=== PATIENT | male | born 1950 | race Caucasian/White ===

== ENCOUNTER 2017-12-18 19:21 | Inpatient (IN) ==
[~2017-12-18 19:21] MED LIST: Acetaminophen 325 MG TABLET PO PRN
[2017-12-18] MEDS ORDERED: Ondansetron 4 MG/2 ML VIAL IVP ONE (19:27)
[2017-12-18 19:42] LABS: Basophils % 0.3 %; Eosinophils % 0.1 %; Hematocrit 35.4 % (37.5-50.1); Hemoglobin 11.9 g/dL (12.9-16.9); Lymphocytes # 1.4 K/mcL (0.6-4.6); Lymphocytes % 13.3 %; Mean Corpuscular HGB Conc 33.6 g/dL (31.6-35.5); Mean Corpuscular Hemoglobin 30.2 pg (28.0-33.3); Mean Corpuscular Volume 89.8 fL (83.0-100.0); Mean Platelet Volume 10.6 fL (9.4-12.4); Monocytes # 0.9 K/mcL (0.0-1.3); Monocytes % 8.3 %; Neutrophils # 8.1 K/mcL (1.6-8.9); Platelet Count 130 K/mcL (140-400); Red Blood Count 3.94 M/mcL (4.19-5.50); Red Cell Distribution Width 14.1 % (11.5-14.5)
--- NOTE | 2017-12-18 19:53 | Emergency Department Note ---
Disposition Clinical Impression: Pyelonephritis, ANJELICA (acute kidney injury), Hyponatremia Nausea and vomiting Qualifiers: Vomiting type: unspecified Vomiting Intractability: non-intractable Qualified Code(s): R11.2 - Nausea with vomiting, unspecified Disposition: Admitted As Inpatient Condition: Fair Time of Disposition: 21:31 General Adult HPI - General Stated complaint: Abdominal Pain Time Seen by Provider: 12/18/17 19:23 Source: patient Mode of arrival: EMS Limitations: no limitations Nursing Notes Reviewed: Yes Vital Signs Reviewed: Yes - History of Present Illness HPI Narrative: Patient is a 67-year-old male with a past medical history of diabetes, HLD, HTN , and chronic indwelling Wiley catheter currently lives with his mother presents to the emergency department for the evaluation of bilateral flank pain , epigastric abdominal pain associated with nausea and vomiting over the past 3 days. Family present in the room states that the patient has an indwelling Wiley catheter and they have noticed odorous dark-colored urine for the past 2 weeks and they have had difficulty getting him into his primary care provider due to no appointments available. States that he just recently had the Wiley catheter changed. - Related Data Home Medications Medication Instructions Recorded Confirmed Amlodipine Besylate 10 mg PO DAILY 01/04/16 01/05/16 Atorvastatin [Lipitor] 40 mg PO HS 01/04/16 01/05/16 Metoprolol [Lopressor] 50 mg PO DAILY 01/04/16 01/05/16 Naproxen Sodium [Naproxen Sodium 500 mg PO BID PRN 01/04/16 01/05/16 ER] Tizanidine HCl 4 mg PO Q8H PRN 01/04/16 01/05/16 Torsemide [Demadex] 20 mg PO DAILY 01/04/16 01/05/16 Ergocalciferol (VITAMIN D2) 50,000 unit PO QWEEK 01/05/16 01/05/16 [Vitamin D2 (50,000 UNIT)] HYDROcodone/Acet 5/325 mg [[place] 1 tab PO Q6H PRN 01/05/16 01/05/16 5-325 mg] Ondansetron HCl [Zofran] 8 mg PO Q12H PRN 01/05/16 01/05/16 Previous Rx's Medication Instructions Recorded Docusate [Colace] 100 mg PO DAILY PRN #60 capsule 01/06/16 Ondansetron [Zofran] 4 mg PO Q6HR PRN #60 vial 01/06/16 OxyCODONE/APAP 5/325 [Percocet 1 each PO Q4HR PRN #36 tablet 01/06/16 5/325 MG] Allergies Allergy/AdvReac Type Severity Reaction Status Date / Time Sulfa (Sulfonamide AdvReac See Verified 01/04/16 14:48 Antibiotics) Comments All systems ED: reviewed and negative except as stated. Review of Systems: As Per HPI Constitutional: Denies: fever, chills Cardiovascular: Denies: chest pain, palpitations, dyspnea on exertion, edema, syncope Respiratory: Denies: cough, dyspnea, wheezes Gastrointestinal: Reports: abdominal pain, nausea, vomiting. Denies: diarrhea, constipation, hematemesis, melena, hematochezia Genitourinary: Reports: other (odorous urine). Denies: urgency, dysuria Musculoskeletal: Reports: back pain (bilateral CVA tenderness). Denies: neck pain Integumentary: Denies: rash, abrasion Neurological: Denies: headache, weakness Past Medical History - Past Medical History Attestation: Yes The following information was validated with the patient. Medical history: Reports: diabetes, hyperlipidemia, hypertension, other Psychiatric history: Reports: no psych history - Social History Smoking Status: Former smoker Smokeless Tobacco Status: No Alcohol use: Reports: none Drug use: Reports: none Physical Exam CONSTITUTIONAL: A&O X 3, in no apparent distress. Actively wretching. HEAD: Normocephalic; atraumatic EYES: PERRL, no scleral icterus NOSE: The nose is normal in appearance without rhinorrhea NECK: No JVD or distended neck veins RESP: Normal chest excursion with respiration; breath sounds clear and equal bilaterally; no wheezes, rhonchi, or rales CARD: Regular rhythm, without murmurs, rub or gallop ABD: Non-distended; epigastric tenderness mildly without peritoneal signs. BACK: CVA pain bilaterally. CHEST: No pain with palpation SKIN: Normal for age and race; warm and dry without diaphoresis ; no apparent lesions EXTREMITIES: Pulses are 2 plus and equal times 4 extremities, no peripheral edema or calf muscle pain Course Course Narrative: Patient undergo evaluation of his abdominal pain. Given a sepsis indwelling Wiley catheter and has positive CVA tenderness as well as history of MRSA urine concern for pyelonephritis. Also concern for possible obstruction. Patient will undergo abdominal lab workup, CT of abdomen and pelvis as well as treatment with zofran. - Reevaluation(s) Reevaluation #1: Patient's lab work returned he does appear to be mildly hyponatremic, has acute kidney injury with a new elevation in creatinine, his urine is also positive for infection. The CT scan shows fat stranding around his kidneys which is not suspicion for pyelonephritis. At this time his urine will go off for culture. We will change his old Wiley for a new Wiley. He will receive 1 g Rocephin for pyelonephritis. His nausea is not completely resolved therefore he receive a dose of Phenergan. Family states his Wiley catheter was placed a couple of years ago after undergoing cholecystectomy which afterwards he was incontinent of urine. Time: 22:31 Vital Signs Temperature 97.6 F 12/18/17 19:24 Pulse Rate 56 12/18/17 19:24 Respiratory Rate 20 12/18/17 19:24 Blood Pressure 117/55 12/18/17 19:24 O2 Sat by Pulse Oximetry 95 12/18/17 19:24 Temperature 97.6 F 12/18/17 19:24 Pulse Rate 60 12/18/17 22:30 Respiratory Rate 18 12/18/17 22:30 Blood Pressure 118/58 12/18/17 22:30 O2 Sat by Pulse Oximetry 97 12/18/17 22:30 Oxygen Delivery Oxygen Delivery Room Air Medical Decision Making - Medical Records Medical records reviewed: Yes I reviewed the patient's medical records. - Lab Data Lab results reviewed: Yes I reviewed the patient's lab results. Result diagrams: 12/18/17 19:24 12/18/17 19:24 Lab Results 12/18/17 12/18/17 12/18/17 Range/Units 19:24 19:24 20:53 WBC 10.5 (4.3-11.1) K/mcL RBC 3.94 L (4.19-5.50) M/mcL Hgb 11.9 L (12.9-16.9) g/dL Hct 35.4 L (37.5-50.1) % MCV 89.8 (83.0-100.0) fL MCH 30.2 (28.0-33.3) pg MCHC 33.6 (31.6-35.5) g/dL RDW 14.1 (11.5-14.5) % Plt Count 130 L (140-400) K/mcL MPV 10.6 (9.4-12.4) fL Immature Gran % 1.0 (0-4) % Seg Neutrophils % 77.0 % Lymphocytes % 13.3 % Monocytes % 8.3 % Eosinophils % 0.1 % Basophils % 0.3 % Neutrophils # 8.1 (1.6-8.9) K/mcL Lymphocytes # 1.4 (0.6-4.6) K/mcL Monocytes # 0.9 (0.0-1.3) K/mcL Eosinophils # 0.0 (0.0-0.6) K/mcL Basophils # 0.0 (0.0-0.2) K/mcL Sodium 130 L (136-145) mEq/L Potassium 3.7 (3.5-5.1) mEq/L Chloride 94 L (98-107) mEq/L Carbon Dioxide 29 (23-29) mEq/L BUN 34 H (8-23) mg/dL Creatinine 1.51 H (0.70-1.30) mg/dL Est GFR ( Amer) 56 L (> 60) Est GFR (Non-Af Amer) 47 L (> 60) BUN/Creatinine Ratio 23 (6-26) Glucose 118 H (70-105) mg/dL Calculated Osmolality 279 L (280-300) Calcium 9.7 (8.6-10.3) mg/dL Total Bilirubin 2.2 H (0.3-1.0) mg/dL Direct Bilirubin 0.7 H (0.0-0.2) mg/dL Indirect Bilirubin 1.5 H (0.0-1.2) mg/dL AST 9 L (13-39) Units/L ALT 11 (7-52) Units/L Alkaline Phosphatase 108 H (34-104) Units/L Serum Total Protein 6.6 (6.4-8.9) g/dL Albumin 3.2 L (3.5-5.7) g/dL Globulin 3.4 (2.4-3.5) g/dL Albumin/Globulin Ratio 0.9 L (1.1-2.2) Lipase 10 L (11-82) Units/L Urine Color Yellow (Yellow) Urine Clarity Turbid A (Clear) Urine pH 6.0 (5.0-8.0) pH Units Ur Specific [place] 1.021 (1.010-1.025) Urine Protein 100 H (Neg-Trace) mg/dL Urine Glucose (UA) Normal (Normal) mg/dL Urine Ketones Negative (Negative) mg/dL Urine Blood Moderate H (Negative) Urine Nitrite Positive A (Negative) Urine Bilirubin Negative (Negative) Urine Urobilinogen Normal (Normal) mg/dL Ur Leukocyte Esterase Large H (Negative) Urine Microscopic RBC 0-3 (0-3) per hpf Urine Microscopic WBC 0-3 (0-3) per hpf Ur Squamous Epith Cells Moderate H (None-Few) per lpf Urine Bacteria None Seen (None-Few) per hpf Hyaline Casts None Seen (None-Few) per lpf Ur Culture Indicated? YES A (NO) - Radiology Data Radiology results reviewed: Yes I reviewed the patient's radiology results. Abdomen/Pelvis CT 12/18/17 19:27 IMPRESSION: Nonobstructing renal stones on the right measuring up to 3 mm. Mild perinephric stranding bilaterally, slightly more prominent on the right with mild inflammation surrounding the right ureter. No ureteral stone. Findings may be related to recent passage of stone. Wiley catheter in the bladder which is decompressed. Bladder wall appears slightly inflamed. Correlate with urinalysis to assess for cystitis. D/ / Rubia Russ MD / Rubia Russ MD Interpreting Provider: Rubia Russ MD Attestation Statement - Attestation Attestation: I examined this patient and my medical decision-making was reviewed with the Resident Physician. I agree with the documented findings, disposition and treatment plan as described except to the extent set forth below. Findings consistent with pyelonephritis. We will start antibiotics, CT scan shows some inflammatory findings around the kidney. There is an indwelling Wiley catheter. Plan on exchanging Wiley catheter, continuation of antibiotics and inpatient management.
[2017-12-18 20:03] LABS: Albumin 3.2 g/dL (3.5-5.7); Albumin/Globulin Ratio 0.9 (1.1-2.2); Bilirubin,Direct 0.7 mg/dL (0.0-0.2); Bilirubin,Indirect 1.5 mg/dL (0.0-1.2); Bilirubin,Total 2.2 mg/dL (0.3-1.0); Calcium 9.7 mg/dL (8.6-10.3); Globulin 3.4 g/dL (2.4-3.5); Potassium 3.7 mEq/L (3.5-5.1); Total Protein 6.6 g/dL (6.4-8.9)
[2017-12-18] MEDS ORDERED: 0.9 % Sodium Chloride 1,000 ML IVC ONE (20:20)
[2017-12-18 21:05] LABS: Bilirubin,Urine Negative (Negative); Blood,Urine Moderate (Negative); Clarity,Urine Turbid (Clear); Color,Urine Yellow (Yellow); Glucose,Urine (UA) Normal (Normal); Ketones,Urine Negative (Negative); Leukocyte Esterase,Urine Large (Negative); Nitrite,Urine Positive (Negative); Protein,Urine 100 mg/dL (Neg-Trace); Specific Gravity,Urine 1.021 (1.010-1.025); Urobilinogen,Urine Normal (Normal)
[2017-12-18 21:08] LABS: Bacteria,Urine None Seen per hpf (None-Few); Hyaline Casts,Urine None Seen per lpf (None-Few); RBC,Urine 0-3 per hpf (0-3); Squamous Epithelial Cell,Urine Moderate per lpf (None-Few); WBC,Urine 0-3 per hpf (0-3)
[2017-12-18] MEDS ORDERED: cefTRIAXone 1,000 MG in Water for inj. (sterile) 20 ML 10 ML IVP ONE (21:29)
[2017-12-18] MEDS ORDERED: *HR* Promethazine 25 MG/ML VIAL IVP ONE (21:36)
[2017-12-18] MEDS ORDERED: Naloxone 0.4 MG/ML INJ IVP PRN (23:18)
--- NOTE | 2017-12-19 00:32 | Internal Med History&Physical ---
Date of Encounter: 12/18/17 Time of Encounter: 23:00 Internal Medicine - H&P: HPI Chief complaint: Flank pain Admitted From: Home Plans for Post Hospital Care: Home History of present illness: Mr. Rodriguez is a 67 year old male presented to ER for bilateral flank pain. Past medical history is significant for scoliosis, chronic bedbound, chronic Wiley catheter use, hypertension. Patient is on chronic Wiley catheter use and change catheter periodically. Patient was found urine is dark and smelly for about 1 week. He has Wiley catheter changed on Wednesday. About the 2 days ago, patient started having bilateral flank pain, nausea, and vomiting. The vomiting are stomach content, no blood in it. Patient denies fever. Patient also complaining sore throat since today. In the emergency room, urinalysis shows UTI. CT abdominal has been done, which shows pyelonephritis, no obstruction. Patient was admitted for further management. Past Med Surg Social Fam HX - Past Medical History Medical history: hyperlipidemia, hypertension, other Additional medical history: Bilateral Sclerosis Psychiatric history: no psych history - Past Surgical History Surgical History: cholecystectomy - Social History Smoking Status: Former smoker Smokeless Tobacco Status: No Alcohol use: none Drug use: none - Family History Mother Living Status: Hx Family Cardiac Disorders: Yes Internal Medicine - H&P: Meds Amlodipine Besylate 10 mg PO DAILY 01/04/16 [History] Atorvastatin [Lipitor] 40 mg PO HS 01/04/16 [History] Metoprolol [Lopressor] 50 mg PO DAILY 01/04/16 [History] Naproxen Sodium [Naproxen Sodium ER] 500 mg PO BID PRN 01/04/16 [History] Tizanidine HCl 4 mg PO Q8H PRN 01/04/16 [History] Torsemide [Demadex] 20 mg PO DAILY 01/04/16 [History] Ergocalciferol (VITAMIN D2) [Vitamin D2 (50,000 UNIT)] 50,000 unit PO QWEEK 12/13 [History] HYDROcodone/Acet 5/325 mg [[place] 5-325 mg] 1 tab PO Q6H PRN 01/05/16 [History] Ondansetron HCl [Zofran] 8 mg PO Q12H PRN 01/05/16 [History] Docusate [Colace] 100 mg PO DAILY PRN #60 capsule 01/06/16 [Rx] Ondansetron [Zofran] 4 mg PO Q6HR PRN #60 vial 01/06/16 [Rx] OxyCODONE/APAP 5/325 [Percocet 5/325 MG] 1 each PO Q4HR PRN #36 tablet 01/06/16 [Rx] 3 Allergy/AdvReac Type Severity Reaction Status Date / Time Sulfa (Sulfonamide AdvReac See Verified 01/04/16 14:48 Antibiotics) Comments All Systems PM: A 10-system review of systems was performed and is negative for pertinent findings except as documented above in the HPI. - Constitutional Vitals: Temp Pulse Resp BP Pulse Ox 97.6 F 58 18 104/58 95 12/18/17 19:24 12/18/17 23:00 12/18/17 23:00 12/18/17 23:00 12/18/17 23:00 General appearance: Present: A&O X 3, no acute distress, answers questions appropriately - Head Head exam: Present: atraumatic, normocephalic - Eye Eye exam: Present: PERRL, conjuntiva pink, sclera anicteric Pupils: Present: PERRL - Neck Neck exam general surgery: Present: supple, trachea midline. Absent: lymphadenopathy Additional comments: Left side tonsil enlargement, no erythema/discharge. - Respiratory Respiratory exam: Present: CTAB. Absent: accessory muscle use, rales, rhonchi, wheezes - Cardiovascular Cardiovascular exam: Present: RRR, +S1, +S2. Absent: diastolic murmur, gallop, rubs, systolic murmur - GI/Abdominal GI/Abdominal exam: Present: normal bowel sounds, soft, no peritoneal signs. Absent: distended, tenderness Additional comments: CVAT bilaterally - Extremities Exam Extremities exam: Present: warm, radial pulses palpable and symmetrical. Absent : calf tenderness, cyanotic, pedal edema - Neurological Exam Neurological exam: Present: CN II-XII intact, oriented X3, no focal deficits. Absent: pronater drift, facial droop, speech deficit - Skin Skin exam: Present: dry, intact Internal Med - H&P Results - Labs CBC & Chem 7: 12/18/17 19:24 12/18/17 19:24 - Assessment and plan (1) DVT prophylaxis Current Visit: Yes Status: Acute Assessment and plan: Heparin subcutaneously (2) ANJELICA (acute kidney injury) Current Visit: Yes Status: Acute Assessment and plan: Patient's creatinine level is elevated from baseline. CT abdomen shows no acute ureter obstruction or hydronephrosis. Probably due to pyelonephritis. Continue IV fluid and follow-up renal function. (3) Hyponatremia Current Visit: Yes Status: Acute Assessment and plan: Mild hyponatremia. Continue 0.9% normal saline. Closely monitor sodium level. Goal of correction is less than 8-10 mEq in the first 24 hours (4) Pyelonephritis Current Visit: Yes Status: Acute Assessment and plan: Place patient on Rocephin IV. Follow up urine culture. Pain medication and Zofran for nausea. (5) Sore throat Current Visit: Yes Status: Acute Assessment and plan: Rapid strep test. Patient is covered by Rocephin now. Cepacol Lozenge for symptom relief. (6) Suicidal ideation Current Visit: Yes Status: Acute Assessment and plan: Patient expressed suicidal ideas for our nurse. Place patient on one-to-one sitter, suicidal precaution, and consult psychiatry - Time Spent With Patient Total time spent is greater than 50% in coordination of care (as documented) at patient's floor/unit and/or counseling patient: 40 minutes Greater than 35 minutes
[2017-12-19] MEDS: 0.9 % Sodium Chloride 1,000 ML IVC SCH (01:28)
[2017-12-19] MEDS: Ondansetron 4 MG/2 ML VIAL IVP PRN ×2 (01:48→08:50)
[2017-12-19] MEDS: *HR* Heparin 5,000 UNIT/ML VIAL SQ SCH ×2 (05:42→18:20)
[2017-12-19 07:33] LABS: Basophils % 0.4 %; Eosinophils % 0.3 %; Hematocrit 31.7 % (37.5-50.1); Immature Granulocytes % 0.6 % (0-4); Lymphocytes # 1.9 K/mcL (0.6-4.6); Lymphocytes % 20.4 %; Mean Corpuscular HGB Conc 32.5 g/dL (31.6-35.5); Mean Corpuscular Hemoglobin 29.5 pg (28.0-33.3); Mean Corpuscular Volume 90.8 fL (83.0-100.0); Mean Platelet Volume 10.5 fL (9.4-12.4); Monocytes # 1.3 K/mcL (0.0-1.3); Monocytes % 13.7 %; Neutrophils # 6.1 K/mcL (1.6-8.9); Platelet Count 119 K/mcL (140-400); Red Blood Count 3.49 M/mcL (4.19-5.50); Red Cell Distribution Width 14.2 % (11.5-14.5); Segmented Neutrophils % 64.6 %
[2017-12-19 07:36] LABS: Hemoglobin 10.3 g/dL (12.9-16.9)
[2017-12-19 07:53] LABS: Calcium 8.9 mg/dL (8.6-10.3); Magnesium 1.9 mg/dL (1.6-2.6); Potassium 3.5 mEq/L (3.5-5.1)
[2017-12-19] MEDS: cefTRIAXone 1,000 MG in Water for inj. (sterile) 20 ML 10 ML IVPB SCH (08:25)
--- NOTE | 2017-12-19 13:24 | Psychiatry Progress Note ---
Date of Encounter: 12/19/17 Time of Encounter: 13:15 Subjective Interval history: 67 years old male admitted to the hospital for evaluation treatment of abdominal pain and treatment of pyelonephritis, hyponatremia, acute kidney injury. Psych consultation was requested to evaluate suicidal ideation. Review of the chart shows no mental health records or admissions or treatment and his medical records are not listing any mental health conditions. Patient was seen at the bedside he was middle age white male who is alert awake his speech is slightly dysarthric hard to understand at times. He denies any mental health issue or treatment denied any suicidal ideation and he was alert and oriented in all spheres. He denies smoking use and alcohol or drugs. Results - Vital Signs Vital Signs: Temp Pulse Resp BP Pulse Ox 98.1 F 54 18 145/86 95 12/19/17 10:59 12/19/17 10:59 12/19/17 10:59 12/19/17 10:59 12/19/17 10:59 - Labs Labs: Laboratory Results - last 24 hr 12/19/17 12/19/17 12/19/17 05:18 07:00 07:00 WBC 9.4 RBC 3.49 L Hgb 10.3 L D Hct 31.7 L MCV 90.8 MCH 29.5 MCHC 32.5 RDW 14.2 Plt Count 119 L MPV 10.5 Immature Gran % 0.6 Seg Neutrophils % 64.6 Lymphocytes % 20.4 Monocytes % 13.7 Eosinophils % 0.3 Basophils % 0.4 Neutrophils # 6.1 Lymphocytes # 1.9 Monocytes # 1.3 Eosinophils # 0.0 Basophils # 0.0 Sodium 136 Potassium 3.5 Chloride 102 Carbon Dioxide 28 BUN 32 H Creatinine 1.45 H Est GFR ( Amer) 59 L Est GFR (Non-Af Amer) 49 L BUN/Creatinine Ratio 22 Glucose 102 POC Glucose 106 H Calculated Osmolality 289 Calcium 8.9 Magnesium 1.9 12/19/17 11:49 WBC RBC Hgb Hct MCV MCH MCHC RDW Plt Count MPV Immature Gran % Seg Neutrophils % Lymphocytes % Monocytes % Eosinophils % Basophils % Neutrophils # Lymphocytes # Monocytes # Eosinophils # Basophils # Sodium Potassium Chloride Carbon Dioxide BUN Creatinine Est GFR ( Amer) Est GFR (Non-Af Amer) BUN/Creatinine Ratio Glucose POC Glucose 93 Calculated Osmolality Calcium Magnesium Assessment and Plan (1) Suicidal ideation Current visit: Yes Status: Acute Additional Plan: 1. DC sitter 2. From psychiatric standpoint, patient can be discharged when medically clear. Thank you for consultation Consult Discharge Plan - Plan Referrals: Hans Bonner MD [Primary Care Provider] - Psychiatry Exam - Constitutional Vitals: Temp Pulse Resp BP Pulse Ox 98.1 F 54 18 145/86 95 12/19/17 10:59 12/19/17 10:59 12/19/17 10:59 12/19/17 10:59 12/19/17 10:59 General appearance: age & developmentally appropriate, well-nourished, unkempt, disheveled, malodorous, average - Musculoskeletal Gait: normal Station: relaxed Strength & Tone: normal for patient - Psychiatric Patient Orientation: Yes Person, Yes Time, Yes Place Level of alertness: Alert Behavior: calm, cooperative Psychomotor activity: Normal Eye Contact: Maintains Eye Contact Mood Description: Euthymic/stable Affect description: congruent with mood, full range Speech Volume: Normal Speech pattern: rambling, aphasic, stuttering, impoverished, monotone Language & Vocabulary: consistent with education Thought Process: Linear, Goal Oriented Thought Content: No Suicidal ideation, No Homicidal ideation, No Overt delusions Perceptual Disturbances: No Auditory hallucinations, No Visual hallucinations Attention Span Ability: Capable of Focused Attention Memory Description: Grossly Intact Patient Reliability: Reliable Historian Fund of knowledge: Yes abstraction ability, Yes aware of current events Intelligence Estimate: Below Average Judgment: Limited Insight: Partial
--- NOTE | 2017-12-19 15:43 | Internal Med Progress Note ---
Date of Encounter: 12/19/17 Time of Encounter: 15:41 - Assessment and plan (1) Acute pyelonephritis Current Visit: Yes Status: Acute (2) ANJELICA (acute kidney injury) Current Visit: Yes Status: Acute (3) Acute hypokalemia Current Visit: Yes Status: Acute (4) Sore throat Current Visit: Yes Status: Acute (5) Suicidal ideation Current Visit: Yes Status: Acute - Time Spent With Patient Total time spent is greater than 50% in coordination of care (as documented) at patient's floor/unit and/or counseling patient: 25 - 35 minutes - Subjective Interval history: .. The patient feels better. He has less pain in his flanks. Denies nausea and vomiting. Denies chest pain. Denies difficulty breathing, coughing and wheezing. This patient has a chronic indwelling Wiley catheter. His creatinine from was 0.80. The patient denies to me having suicidal ideations recently. He has not made any plans to kill himself or hurt himself. OBJECTIVE: .. Skin: Free of rash and discoloration. ENMT: Oral/pharyngeal mucosa is normal in appearance. Eyes: Sclera is white. There is no discharge from eyes. Respiratory: Normal breath sounds; no crackles or wheezes. CV: Heart is regular; no gallop or murmur. GI: Abdomen is soft and not tender. There is no palpable mass or visceromegaly. There is mild tenderness to palpation of his flanks. Neuro: There is no focal deficits. ASSESSMENT AND PLAN: .. Acute pyelonephritis with acute kidney injury in the patient with chronic indwelling Wiley catheter. We will continue IV fluids and IV Rocephin. CBC, BMP and magnesium in the morning. Acute hyperkalemia, secondary to IV fluids. His potassium is 3.5; 3.7 yesterday. We will give him supplemental potassium chloride by mouth. Sore throat. I look inside his throat. He has a viral throatpink in color granular in appearance mucosa. Suicidal ideation. This will be evaluated by psychiatry. - Constitutional Vitals: Temp Pulse Resp BP Pulse Ox 98.8 F 54 15 128/66 92 12/19/17 14:32 12/19/17 14:32 12/19/17 14:32 12/19/17 14:32 12/19/17 14:32 General appearance: Present: A&O X 3, no acute distress, answers questions appropriately Internal Medicine: Result - Labs CBC & Chem 7: 12/19/17 07:00 12/19/17 07:00 Labs: Short CBC 12/19/17 Range/Units 07:00 WBC 9.4 (4.3-11.1) K/mcL Hgb 10.3 L D (12.9-16.9) g/dL Hct 31.7 L (37.5-50.1) % Plt Count 119 L (140-400) K/mcL Neutrophils # 6.1 (1.6-8.9) K/mcL BMP 12/19/17 07:00 Sodium 136 Potassium 3.5 Chloride 102 Carbon Dioxide 28 BUN 32 H Creatinine 1.45 H Glucose 102 Calcium 8.9 Consult Discharge Plan - Plan Referrals: Hans Bonner MD [Primary Care Provider] -
[2017-12-20 05:30] LABS: Basophils # 0.1 K/mcL (0.0-0.2); Basophils % 0.9 %; Eosinophils # 0.2 K/mcL (0.0-0.6); Eosinophils % 2.5 %; Hematocrit 30.7 % (37.5-50.1); Hemoglobin 10.2 g/dL (12.9-16.9); Immature Granulocytes % 0.5 % (0-4); Lymphocytes # 2.5 K/mcL (0.6-4.6); Lymphocytes % 31.7 %; Mean Corpuscular HGB Conc 33.2 g/dL (31.6-35.5); Mean Corpuscular Hemoglobin 29.9 pg (28.0-33.3); Monocytes # 0.9 K/mcL (0.0-1.3); Neutrophils # 4.1 K/mcL (1.6-8.9); Platelet Count 128 K/mcL (140-400); Red Blood Count 3.41 M/mcL (4.19-5.50); Segmented Neutrophils % 53.4 %
[2017-12-20 05:56] LABS: BUN/Creatinine Ratio 22 (6-26); Blood Urea Nitrogen 27 mg/dL (8-23); Calcium 8.6 mg/dL (8.6-10.3); Carbon Dioxide 25 mEq/L (23-29); Chloride 103 mEq/L (98-107); Glucose 94 mg/dL (70-105); Magnesium 1.9 mg/dL (1.6-2.6); Osmolality,Calculated 285 (280-300); Potassium 3.4 mEq/L (3.5-5.1); Sodium 135 mEq/L (136-145); eGFR For African Americans > 60 (> 60); eGFR For Non-African Americans 60 (> 60)
[2017-12-20] MEDS: *HR* Heparin 5,000 UNIT/ML VIAL SQ SCH ×2 (06:02→18:07)
[2017-12-20] MEDS: cefTRIAXone 1,000 MG in Water for inj. (sterile) 20 ML 10 ML IVPB SCH (08:32)
[2017-12-20] MEDS: *HR* HYDROcodone/Acet 5/325 mg TABLET PO PRN (15:05)
[2017-12-20] MEDS: 0.9 % Sodium Chloride 1,000 ML IVC SCH (21:05)
[2017-12-21] MEDS: *HR* HYDROcodone/Acet 5/325 mg TABLET PO PRN ×3 (00:42→17:30)
--- NOTE | 2017-12-21 05:37 | Internal Med Progress Note ---
Date of Encounter: 12/20/17 Time of Encounter: 19:00 - Assessment and plan (1) Acute pyelonephritis Current Visit: Yes Status: Acute (2) ANJELICA (acute kidney injury) Current Visit: Yes Status: Acute (3) Acute hypokalemia Current Visit: Yes Status: Acute (4) Sore throat Current Visit: Yes Status: Acute (5) Suicidal ideation Current Visit: Yes Status: Acute - Time Spent With Patient Total time spent is greater than 50% in coordination of care (as documented) at patient's floor/unit and/or counseling patient: 25 - 35 minutes - Subjective Interval history: .. His pain in the flanks basically subsided. He denies nausea and vomiting. Denies chest pain. Denies difficulty breathing, coughing and wheezing. This patient has a chronic indwelling Wiley catheter. His creatinine from was 0.80. It was 1.51 at admission; 1.22 today. The patient denies to me having suicidal ideations recently. He has not made any plans to kill himself or hurt himself. OBJECTIVE: .. Skin: Free of rash and discoloration. ENMT: Oral/pharyngeal mucosa is normal in appearance. Eyes: Sclera is white. There is no discharge from eyes. Respiratory: Normal breath sounds; no crackles or wheezes. CV: Heart is regular; no gallop or murmur. GI: Abdomen is soft and not tender. There is no palpable mass or visceromegaly. There is mild tenderness to palpation of his flanks. Neuro: There is no focal deficits. ASSESSMENT AND PLAN: .. Acute pyelonephritis with acute kidney injury in the patient with chronic indwelling Wiley catheter. We will continue IV fluids and IV Rocephin. BMP in the morning. Acute hyperkalemia, secondary to IV fluids. His potassium today is 3.4. We will give him supplemental oral potassium chloride. Sore throat. Basically subsided. It seems to be viral in nature. Suicidal ideation. Evaluated by psychiatry. They do not see any more suicidal ideation. They discontinued the sitter. They signed off. Disposition: Tentative discharge is tomorrow. - Constitutional Vitals: Temp Pulse Resp BP Pulse Ox 98.1 F 71 15 126/69 94 12/21/17 04:44 12/21/17 04:44 12/21/17 04:44 07/24/18 04:44 12/21/17 04:44 General appearance: Present: A&O X 3, no acute distress, answers questions appropriately Internal Medicine: Result - Labs CBC & Chem 7: 12/20/17 05:12 12/20/17 05:12 Labs: BMP 12/20/17 05:12 Sodium 135 L Potassium 3.4 L Chloride 103 Carbon Dioxide 25 BUN 27 H Creatinine 1.22 Glucose 94 Calcium 8.6 Consult Discharge Plan - Plan Referrals: Hans Bonner MD [Primary Care Provider] -
[2017-12-21] MEDS: *HR* Heparin 5,000 UNIT/ML VIAL SQ SCH ×2 (06:11→17:30)
[2017-12-21 07:04] LABS: Basophils # 0.1 K/mcL (0.0-0.2); Eosinophils # 0.3 K/mcL (0.0-0.6); Eosinophils % 4.1 %; Hematocrit 33.6 % (37.5-50.1); Hemoglobin 11.1 g/dL (12.9-16.9); Immature Granulocytes % 0.7 % (0-4); Lymphocytes % 42.8 %; Mean Corpuscular Hemoglobin 29.4 pg (28.0-33.3); Mean Corpuscular Volume 89.1 fL (83.0-100.0); Mean Platelet Volume 10.2 fL (9.4-12.4); Monocytes # 0.6 K/mcL (0.0-1.3); Monocytes % 8.3 %; Platelet Count 135 K/mcL (140-400); Red Blood Count 3.77 M/mcL (4.19-5.50); Red Cell Distribution Width 13.8 % (11.5-14.5); Segmented Neutrophils % 43.1 %
[2017-12-21] MEDS: cefTRIAXone 1,000 MG in Water for inj. (sterile) 20 ML 10 ML IVPB SCH (07:53)
[2017-12-21 08:22] LABS: BUN/Creatinine Ratio 22 (6-26); Blood Urea Nitrogen 20 mg/dL (8-23); Calcium 8.7 mg/dL (8.6-10.3); Carbon Dioxide 26 mEq/L (23-29); Chloride 102 mEq/L (98-107); Glucose 96 mg/dL (70-105); Magnesium 1.9 mg/dL (1.6-2.6); Osmolality,Calculated 282 (280-300); Potassium 3.4 mEq/L (3.5-5.1); Sodium 135 mEq/L (136-145); eGFR For African Americans > 60 (> 60); eGFR For Non-African Americans > 60 (> 60)
[2017-12-21] MEDS ORDERED: Nystatin Cream 15 GM TUBE TP SCH (10:15)
--- NOTE | 2017-12-21 14:39 | Physician Discharge Referral ---
Home Health/Hosp Referral Info Transfer to: Home Health Provider in Charge Post Discharge: PCP [facility]: Nusing and home health aid for deconditioning - Respiratory Orders Smoking Cessation: Smoking cessation has been advised. For more information, call the [place] Tobacco Quit Line at 9-751-AFMN-NOW. - Transfer Medications Home Medications: Atorvastatin [Lipitor] 40 mg PO HS 01/04/16 [History] Citalopram Hydrobromide [Citalopram HBr] 20 mg PO DAILY 12/19/17 [History] Ergocalciferol (VITAMIN D2) [Vitamin D2] 50,000 unit PO 2XW 12/19/17 [History] Loratadine [Claritin] 10 mg PO DAILY 12/19/17 [History] Metoprolol Succinate [Toprol Xl] 25 mg PO DAILY 12/19/17 [History] Allergies/Adverse Reactions: 3 Allergy/AdvReac Type Severity Reaction Status Date / Time Sulfa (Sulfonamide AdvReac See Verified 01/04/16 14:48 Antibiotics) Comments Certification: Further, I certify that my clinical findings support that this patient is homebound (i.e. absences from home require considerable and taxing effort and are for medical reasons or amish services or infrequently or short duration when for other reasons) because: Homebound Reason: Patient requires assistance of a person or device to safely leave home Attestation: My signature below is to certify that this patient is under my care and that I, or nurse practitioner, or a physician's trust administrative assistant working with me, has a face-to -face encounter with this patient.
--- NOTE | 2017-12-21 14:52 | Discharge Summary ---
Orders not resulted at time of discharge: Pending orders 12/21/17 13:30 MRSA Surveillance Screen [MOLMIC] Routine Date of Encounter: 12/21/17 Time of Encounter: 14:50 - Discharge Diagnosis (1) Pyelonephritis Priority: Primary Status: Acute (2) ANJELICA (acute kidney injury) Priority: Secondary Status: Acute (3) Hyponatremia Priority: Secondary Status: Acute (4) DVT prophylaxis Priority: Secondary Status: Acute (5) Sore throat Priority: Secondary Status: Acute (6) Suicidal ideation Priority: Secondary Status: Acute (7) Intertrigo Priority: Secondary Status: Acute Comments: suspect candidal intertrigo Hospital course: Mr. Rodriguez is a 67 year old male who presented to [facility] chief complaint of bilateral flank pain. The patient has an indwelling Joseph catheter that is chronic. The patient had imaging which revealed findings concerning for bilateral pyelonephritis and acute kidney injury was noted on his laboratory studies. The patient has been treated with IV Rocephin. Cultures were multi-microbial and contaminated. This patient improved rapidly with IV Rocephin and will be transitioned to IV Keflex to complete a total of 14 days of antibiotics. Patient will be discharged home with home health care. I instructed the patient of the importance apply the nystatin cream to his buttocks area as it is at high risk for skin breakdown. Discharge discussed with: patient, nurse - Time Spent with Patient Total time spent providing and/or coordinating discharge services: Greater than 30 minutes - Discharge Medications Prescriptions: cephALEXin [Keflex] 500 mg PO BID 10 Days #21 capsule Nystatin Cream [Mycostatin Cream] 1 appl TP BID 30 Days #3 tube Home Medications: Atorvastatin [Lipitor] 40 mg PO HS 01/04/16 [History] Citalopram Hydrobromide [Citalopram HBr] 20 mg PO DAILY 12/19/17 [History] Ergocalciferol (VITAMIN D2) [Vitamin D2] 50,000 unit PO 2XW 12/19/17 [History] Loratadine [Claritin] 10 mg PO DAILY 12/19/17 [History] Metoprolol Succinate [Toprol Xl] 25 mg PO DAILY 12/19/17 [History] Acetaminophen [Tylenol] 650 mg PO Q6HR PRN tablet 12/21/17 [Rx] Nystatin Cream [Mycostatin Cream] 1 appl TP BID 30 Days #3 tube 12/21/17 [Rx] cephALEXin [Keflex] 500 mg PO BID 10 Days #21 capsule 12/21/17 [Rx] Allergies/Adverse Reactions: 3 Allergy/AdvReac Type Severity Reaction Status Date / Time Sulfa (Sulfonamide AdvReac See Verified 01/04/16 14:48 Antibiotics) Comments Date of admission: 12/18/17 23:18 Primary care physician: Hans Bonner MD Consults: 12/19/17 00:20 Consult to Psychiatry [CONS] Routine Consulting Provider: Psychiat[facility] [place] Reason consult: Sitter/1:1 Consult to Integration Architect [CONS] Routine Reason for SW Consult: Possible Home health - Constitutional Vitals: Temp Pulse Resp BP Pulse Ox 97.8 F 50 14 157/75 97 12/21/17 14:33 12/21/17 14:33 12/21/17 14:33 12/21/17 14:33 12/21/17 14:33 General appearance: Present: A&O X 3, no acute distress, answers questions appropriately Exam: Constitutional: No acute distress, Alert Psych: AAO x 3 HEENT: NCAT, EOMI Neck: supple Cardio: regular rate and rhythm, +s1s2, no murmurs/rubs/ronchi, no lower extremity edema Resp: clear to ascultation bilaterally, no wheezes/rales/ronchi Abd: soft, non tender/non distended, positive bowel sounds, no gaurding/reboud/ ridgitity : joseph in place Extremities: no clubbing/cyanosis/edema appreciated Skin: intertigo of the buttocks and perineal area without wound - Patient Status Disposition: Home Health Service Condition: Fair Functional capacity at discharge: bed bound Overall status at discharge: patient is progressing back to baseline - Discharge Instructions Instructions: Urinary Tract Infection in Men (DC) Follow Up With: Hans Bonner MD [Primary Care Provider] - - Diet and Activity Activity: resume usual activities as tolerated Diet: advance to your usual diet
[2017-12-21 18:46] VITALS: BP 125/67
== END 2017-12-21 18:59 | disposition home health service (06) | DRG 699 ==
LOC: EMEROO 19:21 → 3ANU 19:21 → SUATTDRO 23:18
PROVIDERS: ADMIT Internal Medicine; ATTEND Internal Medicine

== ENCOUNTER 2019-04-10 14:34 | Inpatient (IN) ==
[2019-04-10] MEDS ORDERED: 0.9 % Sodium Chloride 1,000 ML IVC ONE ×3 (14:57→16:43)
[2019-04-10] MEDS ORDERED: Ondansetron 4 MG/2 ML VIAL IVP ONE (15:08)
[2019-04-10] MEDS ORDERED: *HR* FentaNYL (PF) 100 MCG/2 ML VIAL IVP ONE (15:08)
[2019-04-10] MEDS ORDERED: Isovue-370 500 ML BOTTLE IVP ONE (15:13)
[2019-04-10 15:18] LABS: Basophils # 0.1 K/mcL (0.0-0.2); Basophils % 0.3 %; Hematocrit 40.4 % (37.5-50.1); Hemoglobin 13.1 g/dL (12.9-16.9); Immature Granulocytes % 4.3 % (0-4); Lymphocytes # 1.7 K/mcL (0.6-4.6); Mean Corpuscular HGB Conc 32.4 g/dL (31.6-35.5); Mean Corpuscular Hemoglobin 28.7 pg (28.0-33.3); Mean Corpuscular Volume 88.6 fL (83.0-100.0); Mean Platelet Volume 9.8 fL (9.4-12.4); Monocytes # 0.6 K/mcL (0.0-1.3); Monocytes % 2.7 %; Neutrophils # 18.4 K/mcL (1.6-8.9); Platelet Count 282 K/mcL (140-400); Red Blood Count 4.56 M/mcL (4.19-5.50); Red Cell Distribution Width 14.9 % (11.5-14.5); Segmented Neutrophils % 84.7 %; White Blood Count 21.7 K/mcL (4.3-11.1)
[2019-04-10 15:25] LABS: Bilirubin,Urine Negative (Negative); Blood,Urine Large (Negative); Clarity,Urine Turbid (Clear); Color,Urine Red (Yellow); Glucose,Urine (UA) Normal (Normal); Ketones,Urine Negative (Negative); Leukocyte Esterase,Urine Large (Negative); Nitrite,Urine Negative (Negative); Protein,Urine >=300 mg/dL (Neg-Trace); Specific Gravity,Urine 1.013 (1.010-1.025); Urobilinogen,Urine Normal (Normal)
[2019-04-10 15:32] LABS: RBC,Urine TNTC per hpf (0-3); WBC,Urine TNTC per hpf (0-3)
[2019-04-10 15:33] LABS: Bacteria,Urine Present per hpf (None-Few); Squamous Epithelial Cell,Urine Present per lpf (None-Few)
[2019-04-10 15:34] LABS: BUN/Creatinine Ratio 15 (6-26); Blood Urea Nitrogen 39 mg/dL (8-23); Calcium 9.1 mg/dL (8.6-10.3); Carbon Dioxide 20 mEq/L (23-29); Chloride 106 mEq/L (98-107); Glucose 106 mg/dL (70-105); Osmolality,Calculated 294 (280-300); Potassium 5.5 mEq/L (3.5-5.1); Sodium 137 mEq/L (136-145); eGFR For African Americans 31 (> 60); eGFR For Non-African Americans 26 (> 60)
[2019-04-10] MEDS ORDERED: Ertapenem 1,000 MG in 0.9 % Sodium Chloride Mini Bag 100 ML IVPB STA (15:40)
[2019-04-10] MEDS ORDERED: Fluconazole 100 MG TABLET PO ONE (15:42)
[2019-04-10 16:00] LABS: Troponin I < 0.03 ng/mL (< 0.04)
[2019-04-10 16:45] LABS: Alanine Aminotransferase 24 Units/L (7-52); Albumin 3.4 g/dL (3.5-5.7); Albumin/Globulin Ratio 1.1 (1.1-2.2); Alkaline Phosphatase 113 Units/L (34-104); Aspartate Amino Transferase 34 Units/L (13-39); Bilirubin,Direct 0.4 mg/dL (0.0-0.2); Bilirubin,Indirect 0.6 mg/dL (0.0-1.0); Globulin 3.2 g/dL (2.4-3.5); Lipase 11 Units/L (11-82); Total Protein 6.6 g/dL (6.4-8.9)
[2019-04-10] MEDS ORDERED: Ondansetron 4 MG/2 ML VIAL IVP PRN (17:28)
[2019-04-10] MEDS ORDERED: Acetaminophen 325 MG TABLET PO PRN (17:28)
[2019-04-10] MEDS ORDERED: Naloxone 0.4 MG/ML INJ IVP PRN (17:28)
[2019-04-10] MEDS: *HR* Heparin 5,000 UNIT/ML VIAL SQ SCH (20:20)
[2019-04-10] MEDS: 0.9 % Sodium Chloride 1,000 ML IVC SCH (20:20)
[2019-04-11] MEDS: 0.9 % Sodium Chloride 1,000 ML IVC SCH (05:52)
[2019-04-11] MEDS: *HR* Heparin 5,000 UNIT/ML VIAL SQ SCH ×3 (05:53→21:25)
[2019-04-11] MEDS: Metoprolol XL (24 HR) Succ 25 MG TAB.ER.24H PO SCH (07:42)
[2019-04-11 08:22] LABS: Basophils # 0.1 K/mcL (0.0-0.2); Basophils % 0.5 %; Eosinophils # 0.3 K/mcL (0.0-0.6); Hematocrit 32.6 % (37.5-50.1); Immature Granulocytes % 2.2 % (0-4); Lymphocytes # 2.2 K/mcL (0.6-4.6); Lymphocytes % 13.1 %; Mean Corpuscular Hemoglobin 28.9 pg (28.0-33.3); Mean Corpuscular Volume 93.1 fL (83.0-100.0); Mean Platelet Volume 10.5 fL (9.4-12.4); Monocytes % 5.9 %; Neutrophils # 12.8 K/mcL (1.6-8.9); Platelet Count 198 K/mcL (140-400); Red Cell Distribution Width 15.3 % (11.5-14.5); Segmented Neutrophils % 76.3 %; White Blood Count 16.7 K/mcL (4.3-11.1)
[2019-04-11 08:23] LABS: Hemoglobin 10.1 g/dL (12.9-16.9)
[2019-04-11 08:35] LABS: Albumin 3.1 g/dL (3.5-5.7); Albumin/Globulin Ratio 1.1 (1.1-2.2); Bilirubin,Total 0.7 mg/dL (0.3-1.0); Calcium 8.3 mg/dL (8.6-10.3); Globulin 2.8 g/dL (2.4-3.5); Potassium 4.9 mEq/L (3.5-5.1); Total Protein 5.9 g/dL (6.4-8.9)
[2019-04-11] MEDS: Ertapenem 1,000 MG in 0.9 % Sodium Chloride Mini Bag 100 ML IVPB SCH (10:49)
[2019-04-11 10:55] LABS: Acinetobacter baumannii by PCR Not Detected (Not Detect); Candida albicans by PCR Not Detected (Not Detect); Candida glabrata by PCR Not Detected (Not Detect); Candida krusei by PCR Not Detected (Not Detect); Candida parapsilosis by PCR Not Detected (Not Detect); Candida tropicalis by PCR Not Detected (Not Detect); Enterobacter cloacae Cmplx PCR Not Detected (Not Detect); Enterococcus by PCR Not Detected (Not Detect); Escherichia coli by PCR DETECTED (Not Detect); Klebsiella oxytoca by PCR Not Detected (Not Detect); Klebsiella pneumoniae by PCR Not Detected (Not Detect); Pseudomonas aeruginosa by PCR Not Detected (Not Detect); Serratia marcescens by PCR Not Detected (Not Detect); Staphylococcus aureus by PCR Not Detected (Not Detect); Staphylococcus by PCR Not Detected (Not Detect); Streptococcus agalactiae(B)PCR Not Detected (Not Detect); Streptococcus by PCR Not Detected (Not Detect); Streptococcus pneumoniae PCR Not Detected (Not Detect); Streptococcus pyogenes (A) PCR Not Detected (Not Detect); blaKPC Carbapenem-Resist Gene Not Detected (Not Detect)
[2019-04-11] MEDS ORDERED: Aminoglycoside Consult 1 EACH MC ONE (11:57)
[2019-04-11] MEDS ORDERED: Loratadine 10 MG TABLET PO PRN (13:15)
[2019-04-11] MEDS: Sodium Bicarbonate 150 MEQ in D5% in Water 1,000 ML IVC SCH (14:46)
[2019-04-12] MEDS: Sodium Bicarbonate 150 MEQ in D5% in Water 1,000 ML IVC SCH ×2 (03:13→13:37)
[2019-04-12] MEDS: *HR* Heparin 5,000 UNIT/ML VIAL SQ SCH ×3 (06:10→21:15)
[2019-04-12 06:48] LABS: Basophils # 0.1 K/mcL (0.0-0.2); Basophils % 0.5 %; Eosinophils # 0.6 K/mcL (0.0-0.6); Eosinophils % 5.7 %; Hematocrit 28.6 % (37.5-50.1); Hemoglobin 8.8 g/dL (12.9-16.9); Immature Granulocytes % 0.9 % (0-4); Lymphocytes # 2.1 K/mcL (0.6-4.6); Lymphocytes % 18.9 %; Mean Corpuscular HGB Conc 30.8 g/dL (31.6-35.5); Mean Corpuscular Hemoglobin 28.8 pg (28.0-33.3); Mean Corpuscular Volume 93.5 fL (83.0-100.0); Mean Platelet Volume 10.6 fL (9.4-12.4); Monocytes # 0.7 K/mcL (0.0-1.3); Monocytes % 5.9 %; Neutrophils # 7.6 K/mcL (1.6-8.9); Platelet Count 165 K/mcL (140-400); Red Blood Count 3.06 M/mcL (4.19-5.50); Red Cell Distribution Width 15.1 % (11.5-14.5); Segmented Neutrophils % 68.1 %; White Blood Count 11.2 K/mcL (4.3-11.1)
[2019-04-12 06:51] LABS: Calcium 8.3 mg/dL (8.6-10.3); Potassium 4.2 mEq/L (3.5-5.1)
[2019-04-12 07:08] LABS: Folate 7.4 ng/mL (3.0-16.0)
[2019-04-12] MEDS: Ertapenem 1,000 MG in 0.9 % Sodium Chloride Mini Bag 100 ML IVPB SCH (08:05)
[2019-04-12] MEDS: Metoprolol XL (24 HR) Succ 25 MG TAB.ER.24H PO SCH (08:05)
[2019-04-12] MEDS: Cholecalciferol (D-3) 1,000 UNIT (25MCG) TABLET PO SCH (08:05)
[2019-04-12] MEDS: Nystatin Cream 15 GM TUBE TP SCH ×2 (15:08→21:16)
[2019-04-13] MEDS: Sodium Bicarbonate 150 MEQ in D5% in Water 1,000 ML IVC SCH ×2 (02:08→13:54)
[2019-04-13 05:08] LABS: Basophils # 0.1 K/mcL (0.0-0.2); Basophils % 0.6 %; Eosinophils # 0.6 K/mcL (0.0-0.6); Hematocrit 28.6 % (37.5-50.1); Immature Granulocytes % 0.4 % (0-4); Lymphocytes # 1.9 K/mcL (0.6-4.6); Lymphocytes % 24.6 %; Mean Corpuscular HGB Conc 31.5 g/dL (31.6-35.5); Mean Corpuscular Hemoglobin 28.8 pg (28.0-33.3); Mean Corpuscular Volume 91.7 fL (83.0-100.0); Mean Platelet Volume 10.8 fL (9.4-12.4); Monocytes # 0.4 K/mcL (0.0-1.3); Monocytes % 5.7 %; Neutrophils # 4.7 K/mcL (1.6-8.9); Platelet Count 163 K/mcL (140-400); Red Blood Count 3.12 M/mcL (4.19-5.50); Red Cell Distribution Width 14.9 % (11.5-14.5); Segmented Neutrophils % 60.7 %; White Blood Count 7.7 K/mcL (4.3-11.1)
[2019-04-13 05:29] LABS: Calcium 8.1 mg/dL (8.6-10.3); Magnesium 1.7 mg/dL (1.6-2.6); Potassium 3.8 mEq/L (3.5-5.1)
[2019-04-13] MEDS: *HR* Heparin 5,000 UNIT/ML VIAL SQ SCH ×3 (06:04→21:32)
[2019-04-13 07:25] LABS: Proteus by PCR DETECTED (Not Detect)
[2019-04-13] MEDS: Cholecalciferol (D-3) 1,000 UNIT (25MCG) TABLET PO SCH (08:23)
[2019-04-13] MEDS: Metoprolol XL (24 HR) Succ 25 MG TAB.ER.24H PO SCH (08:24)
[2019-04-13] MEDS: Nystatin Cream 15 GM TUBE TP SCH ×2 (08:24→21:33)
[2019-04-13] MEDS: Ertapenem 1,000 MG in 0.9 % Sodium Chloride Mini Bag 100 ML IVPB SCH (08:25)
[2019-04-14] MEDS: Sodium Bicarbonate 150 MEQ in D5% in Water 1,000 ML IVC SCH ×2 (01:13→14:44)
[2019-04-14] MEDS: *HR* Heparin 5,000 UNIT/ML VIAL SQ SCH ×3 (06:03→21:20)
[2019-04-14] MEDS: Cholecalciferol (D-3) 1,000 UNIT (25MCG) TABLET PO SCH (11:15)
[2019-04-14] MEDS: Metoprolol XL (24 HR) Succ 25 MG TAB.ER.24H PO SCH (11:16)
[2019-04-14] MEDS: Nystatin Cream 15 GM TUBE TP SCH ×2 (11:16→21:20)
[2019-04-14] MEDS: Ertapenem 1,000 MG in 0.9 % Sodium Chloride Mini Bag 100 ML IVPB SCH (11:17)
[2019-04-15] MEDS: Sodium Bicarbonate 150 MEQ in D5% in Water 1,000 ML IVC SCH ×2 (02:16→14:32)
[2019-04-15 05:32] LABS: Basophils # 0.1 K/mcL (0.0-0.2); Basophils % 0.7 %; Eosinophils # 1.2 K/mcL (0.0-0.6); Eosinophils % 12.7 %; Hematocrit 30.2 % (37.5-50.1); Hemoglobin 9.7 g/dL (12.9-16.9); Immature Granulocytes % 0.9 % (0-4); Lymphocytes # 3.5 K/mcL (0.6-4.6); Lymphocytes % 36.7 %; Mean Corpuscular HGB Conc 32.1 g/dL (31.6-35.5); Mean Corpuscular Hemoglobin 28.4 pg (28.0-33.3); Mean Corpuscular Volume 88.6 fL (83.0-100.0); Mean Platelet Volume 10.9 fL (9.4-12.4); Monocytes # 0.6 K/mcL (0.0-1.3); Monocytes % 6.6 %; Platelet Count 181 K/mcL (140-400); Red Blood Count 3.41 M/mcL (4.19-5.50); Red Cell Distribution Width 14.3 % (11.5-14.5); Segmented Neutrophils % 42.4 %; White Blood Count 9.5 K/mcL (4.3-11.1)
[2019-04-15 05:46] LABS: Calcium 8.1 mg/dL (8.6-10.3); Potassium 3.8 mEq/L (3.5-5.1)
[2019-04-15] MEDS: *HR* Heparin 5,000 UNIT/ML VIAL SQ SCH ×3 (06:21→21:39)
[2019-04-15] MEDS: Metoprolol XL (24 HR) Succ 25 MG TAB.ER.24H PO SCH (08:48)
[2019-04-15] MEDS: Ertapenem 1,000 MG in 0.9 % Sodium Chloride Mini Bag 100 ML IVPB SCH (08:48)
[2019-04-15] MEDS: Cholecalciferol (D-3) 1,000 UNIT (25MCG) TABLET PO SCH (08:48)
[2019-04-15] MEDS: Nystatin Cream 15 GM TUBE TP SCH ×2 (08:49→21:39)
[2019-04-16] MEDS: Sodium Bicarbonate 150 MEQ in D5% in Water 1,000 ML IVC SCH (01:22)
[2019-04-16] MEDS: *HR* Heparin 5,000 UNIT/ML VIAL SQ SCH ×3 (06:16→21:34)
[2019-04-16 07:59] LABS: Basophils # 0.1 K/mcL (0.0-0.2); Basophils % 0.5 %; Eosinophils # 1.1 K/mcL (0.0-0.6); Eosinophils % 11.6 %; Hematocrit 29.7 % (37.5-50.1); Hemoglobin 9.4 g/dL (12.9-16.9); Immature Granulocytes % 1.4 % (0-4); Lymphocytes # 3.1 K/mcL (0.6-4.6); Lymphocytes % 32.9 %; Mean Corpuscular HGB Conc 31.6 g/dL (31.6-35.5); Mean Corpuscular Hemoglobin 28.3 pg (28.0-33.3); Mean Corpuscular Volume 89.5 fL (83.0-100.0); Mean Platelet Volume 10.2 fL (9.4-12.4); Monocytes # 0.5 K/mcL (0.0-1.3); Monocytes % 5.4 %; Neutrophils # 4.5 K/mcL (1.6-8.9); Platelet Count 182 K/mcL (140-400); Red Blood Count 3.32 M/mcL (4.19-5.50); Red Cell Distribution Width 14.2 % (11.5-14.5); Segmented Neutrophils % 48.2 %; White Blood Count 9.4 K/mcL (4.3-11.1)
[2019-04-16 08:25] LABS: Calcium 8.5 mg/dL (8.6-10.3); Potassium 3.6 mEq/L (3.5-5.1)
[2019-04-16] MEDS: Metoprolol XL (24 HR) Succ 25 MG TAB.ER.24H PO SCH (09:14)
[2019-04-16] MEDS: Ertapenem 1,000 MG in 0.9 % Sodium Chloride Mini Bag 100 ML IVPB SCH (09:14)
[2019-04-16] MEDS: Cholecalciferol (D-3) 1,000 UNIT (25MCG) TABLET PO SCH (09:14)
[2019-04-16] MEDS: Nystatin Cream 15 GM TUBE TP SCH ×2 (09:16→21:37)
[2019-04-17] MEDS: *HR* Heparin 5,000 UNIT/ML VIAL SQ SCH ×3 (05:34→20:05)
[2019-04-17 06:28] LABS: Basophils % 0.4 %; Eosinophils # 1.1 K/mcL (0.0-0.6); Hematocrit 31.3 % (37.5-50.1); Hemoglobin 9.8 g/dL (12.9-16.9); Immature Granulocytes % 2.2 % (0-4); Lymphocytes # 3.5 K/mcL (0.6-4.6); Lymphocytes % 37.4 %; Mean Corpuscular HGB Conc 31.3 g/dL (31.6-35.5); Mean Corpuscular Hemoglobin 28.8 pg (28.0-33.3); Mean Corpuscular Volume 92.1 fL (83.0-100.0); Mean Platelet Volume 10.2 fL (9.4-12.4); Monocytes # 0.5 K/mcL (0.0-1.3); Monocytes % 5.3 %; Platelet Count 190 K/mcL (140-400); Red Cell Distribution Width 14.5 % (11.5-14.5); Segmented Neutrophils % 42.7 %; White Blood Count 9.4 K/mcL (4.3-11.1)
[2019-04-17 06:55] LABS: Calcium 8.6 mg/dL (8.6-10.3); Potassium 4.1 mEq/L (3.5-5.1)
[2019-04-17] MEDS: Nystatin Cream 15 GM TUBE TP SCH (09:16)
[2019-04-17] MEDS: Ertapenem 1,000 MG in 0.9 % Sodium Chloride Mini Bag 100 ML IVPB SCH (09:16)
[2019-04-17] MEDS: Metoprolol XL (24 HR) Succ 25 MG TAB.ER.24H PO SCH (09:16)
[2019-04-17] MEDS: Cholecalciferol (D-3) 1,000 UNIT (25MCG) TABLET PO SCH (09:16)
[2019-04-17] MEDS ORDERED: Fluconazole 100 MG TABLET PO SCH (13:15)
[2019-04-17] MEDS: Doxycycline 100 MG CAPSULE PO SCH (20:05)
[2019-04-18] MEDS: Nystatin Cream 15 GM TUBE TP SCH ×2 (04:48→08:43)
[2019-04-18] MEDS: *HR* Heparin 5,000 UNIT/ML VIAL SQ SCH (05:59)
[2019-04-18 07:38] VITALS: BP 104/56
[2019-04-18] MEDS: Doxycycline 100 MG CAPSULE PO SCH (08:43)
[2019-04-18] MEDS: Metoprolol XL (24 HR) Succ 25 MG TAB.ER.24H PO SCH (08:43)
[2019-04-18] MEDS: Cholecalciferol (D-3) 1,000 UNIT (25MCG) TABLET PO SCH (08:43)
[2019-04-18] MEDS: Ertapenem 1,000 MG in 0.9 % Sodium Chloride Mini Bag 100 ML IVPB SCH (08:44)
== END 2019-04-18 11:33 | disposition home health service (06) | DRG 698 ==
LOC: SUATTDRO → 2ANU 14:34 → EMEROOARM 14:34 → SUATTDRO 17:13 → 2ANU 17:48 → SUATTDRO 18:25
PROVIDERS: ADMIT Pharmacist; ATTEND Internal Medicine

== ENCOUNTER 2019-05-17 21:03 | Inpatient (IN) ==
[2019-05-17] MEDS ORDERED: 0.9 % Sodium Chloride 1,000 ML IVC ONE ×3 (21:09→23:42)
[2019-05-17] MEDS ORDERED: Pantoprazole 40 MG VIAL IVP ONE (21:17)
[2019-05-17] MEDS ORDERED: Ondansetron 4 MG/2 ML VIAL IVP ONE (21:17)
[2019-05-17 21:33] LABS: Bilirubin,Urine Large (Negative); Blood,Urine Large (Negative); Clarity,Urine Cloudy (Clear); Color,Urine Red (Yellow); Glucose,Urine (UA) Normal (Normal); Ketones,Urine 15 mg/dL (Negative); Leukocyte Esterase,Urine Moderate (Negative); Nitrite,Urine Positive (Negative); PH,Urine 7.5 pH Units (5.0-8.0); Protein,Urine >=300 mg/dL (Neg-Trace); Urobilinogen,Urine Normal (Normal)
[2019-05-17 21:37] LABS: Basophils % 0.3 %; Eosinophils % 0.7 %; Hematocrit 39.2 % (37.5-50.1); Hemoglobin 12.3 g/dL (12.9-16.9); Immature Granulocytes % 0.7 % (0-4); Lymphocytes # 0.5 K/mcL (0.6-4.6); Lymphocytes % 16.7 %; Mean Corpuscular HGB Conc 31.4 g/dL (31.6-35.5); Mean Corpuscular Hemoglobin 28.9 pg (28.0-33.3); Mean Corpuscular Volume 92.2 fL (83.0-100.0); Mean Platelet Volume 10.4 fL (9.4-12.4); Neutrophils # 2.5 K/mcL (1.6-8.9); Nucleated Red Blood Cells 0.7 /100 WBC (0); Platelet Count 114 K/mcL (140-400); Red Blood Count 4.25 M/mcL (4.19-5.50); Red Cell Distribution Width 15.8 % (11.5-14.5); Segmented Neutrophils % 80.6 %; White Blood Count 3.1 K/mcL (4.3-11.1)
[2019-05-17 21:53] LABS: Platelet Estimate Decreased (Normal)
[2019-05-17 21:57] LABS: Albumin 3.3 g/dL (3.5-5.7); Albumin/Globulin Ratio 1.1 (1.1-2.2); Bilirubin,Direct 0.8 mg/dL (0.0-0.2); Bilirubin,Indirect 0.7 mg/dL (0.0-1.0); Bilirubin,Total 1.5 mg/dL (0.3-1.0); Calcium 8.6 mg/dL (8.6-10.3); Potassium 4.3 mEq/L (3.5-5.1); Total Protein 6.3 g/dL (6.4-8.9)
[2019-05-17] MEDS ORDERED: Lidocaine Jelly 11 ml Syringe MM ONE (22:43)
[2019-05-17 23:13] LABS: Hepatitis B Surface Antigen Nonreactive (Nonreactive)
[2019-05-17 23:43] LABS: Hepatitis B Core IgM Nonreactive (Nonreactive)
[2019-05-17 23:44] LABS: Hepatitis A Antibody IgM Nonreactive (Nonreactive); Hepatitis C Virus Antibody Nonreactive (Nonreactive)
[2019-05-18] MEDS: Ertapenem 1,000 MG in 0.9 % Sodium Chloride Mini Bag 100 ML IVPB SCH ×2 (00:15→22:57)
[2019-05-18] MEDS ORDERED: Ondansetron 4 MG/2 ML VIAL IVP PRN (01:58)
[2019-05-18] MEDS ORDERED: Naloxone 0.4 MG/ML INJ IVP PRN (01:58)
[2019-05-18] MEDS ORDERED: Ringers Solution, Lactated 1,000 ML IVC SCH ×2 (02:00→06:21)
[2019-05-18] MEDS ORDERED: Isovue-370 500 ML BOTTLE IVP ONE (02:42)
[2019-05-18] MEDS: Norepinephrine 4 MG in 0.9 % Sodium Chloride 250 ML IVC SCH ×3 (03:45→20:10)
[2019-05-18] MEDS ORDERED: D5% in Water 1,000 ML IVC PRN ×2 (05:48→05:51)
[2019-05-18] MEDS ORDERED: Dextrose Gel 15 GM/37.5 ML TUBE PO PRN ×2 (05:48)
[2019-05-18 05:52] LABS: Hematocrit 37.7 % (37.5-50.1); Hemoglobin 11.3 g/dL (12.9-16.9); Mean Corpuscular Hemoglobin 28.7 pg (28.0-33.3); Mean Corpuscular Volume 95.7 fL (83.0-100.0); Nucleated Red Blood Cells 0.2 /100 WBC (0); Platelet Count 106 K/mcL (140-400); Red Blood Count 3.94 M/mcL (4.19-5.50); Red Cell Distribution Width 16.1 % (11.5-14.5)
[2019-05-18 06:00] LABS: INR 1.3; Prothrombin Time 14.9 Seconds (9.4-12.1)
[2019-05-18] MEDS ORDERED: *HR* Heparin 5,000 UNIT/ML VIAL SQ SCH ×2 (06:00→08:00)
[2019-05-18 06:06] LABS: White Blood Count 11.3 K/mcL (4.3-11.1)
[2019-05-18 06:48] LABS: Albumin 3.1 g/dL (3.5-5.7); Albumin/Globulin Ratio 1.2 (1.1-2.2); Bilirubin,Total 2.8 mg/dL (0.3-1.0); Calcium 7.9 mg/dL (8.6-10.3); Globulin 2.5 g/dL (2.4-3.5); Potassium 4.9 mEq/L (3.5-5.1); Total Protein 5.6 g/dL (6.4-8.9)
[2019-05-18 06:53] LABS: Albumin 3.1 g/dL (3.5-5.7); Albumin/Globulin Ratio 1.2 (1.1-2.2); Bilirubin,Direct 2.1 mg/dL (0.0-0.2); Bilirubin,Indirect 0.8 mg/dL (0.0-1.0); Bilirubin,Total 2.9 mg/dL (0.3-1.0); Globulin 2.5 g/dL (2.4-3.5); Total Protein 5.6 g/dL (6.4-8.9)
[2019-05-18] MEDS ORDERED: Verapamil 5 MG/2 ML VIAL ONE (07:53)
[2019-05-18] MEDS ORDERED: *HR* FentaNYL (PF) 250 MCG/5 ML VIAL ONE (07:54)
[2019-05-18] MEDS ORDERED: *HR* Midazolam HCl 5 MG/5 ML VIAL IVP ONE (07:54)
[2019-05-18] MEDS ORDERED: *HR* Etomidate 20 MG/10 ML AMPUL IVP ONE (07:55)
[2019-05-18] MEDS ORDERED: *HR* PHENYLEPHRINE 1,000 MCG/10 ML SYRINGE IVP ONE (07:55)
[2019-05-18] MEDS ORDERED: *HR* Rocuronium Bromide 50 MG/5 ML VIAL ONE (07:55)
[2019-05-18 08:31] LABS: Lymphocytes # 0.9 K/mcL (0.6-4.6); Monocytes # 0.7 K/mcL (0.0-1.3); Neutrophils # 9.7 K/mcL (1.6-8.9)
[2019-05-18 08:32] LABS: Anisocytosis 1+ (Not Present); Platelet Estimate Decreased (Normal)
[2019-05-18 09:15] LABS: ABG Base Excess -11 mEq/L (-2 to 3); ABG Chloride 112 mEq/L (98-107); ABG Glucose 79 mg/dL (60-95); ABG HCO3 17 mEq/L (21-27); ABG Ionized Calcium 1.14 mmol/L (1.15-1.35); ABG Oxygen Saturation 100 % (95-98); ABG PCO2 46 mmHg (35-45); ABG PH 7.17 pH Units (7.32-7.45); ABG PO2 330 mmHg (85-104); ABG TCO2 18 mEq/L (20-26)
[2019-05-18] MEDS ORDERED: Aminoglycoside Consult 1 EACH MC ONE (09:45)
[2019-05-18] MEDS ORDERED: Heparin 1,000 UNITS/500 mL IV.SOLN IVC ONE (10:18)
[2019-05-18] MEDS ORDERED: *HR* Heparin 10,000 UNIT/10 ML VIAL IV ONE (10:18)
[2019-05-18 10:48] LABS: Acinetobacter baumannii by PCR Not Detected (Not Detect); Candida albicans by PCR Not Detected (Not Detect); Candida glabrata by PCR Not Detected (Not Detect); Candida krusei by PCR Not Detected (Not Detect); Candida parapsilosis by PCR Not Detected (Not Detect); Candida tropicalis by PCR Not Detected (Not Detect); Enterobacter cloacae Cmplx PCR Not Detected (Not Detect); Enterococcus by PCR Not Detected (Not Detect); Escherichia coli by PCR Not Detected (Not Detect); Klebsiella oxytoca by PCR Not Detected (Not Detect); Klebsiella pneumoniae by PCR Not Detected (Not Detect); Proteus by PCR DETECTED (Not Detect); Pseudomonas aeruginosa by PCR Not Detected (Not Detect); Serratia marcescens by PCR Not Detected (Not Detect); Staphylococcus aureus by PCR Not Detected (Not Detect); Staphylococcus by PCR Not Detected (Not Detect); Streptococcus agalactiae(B)PCR Not Detected (Not Detect); Streptococcus by PCR Not Detected (Not Detect); Streptococcus pneumoniae PCR Not Detected (Not Detect); Streptococcus pyogenes (A) PCR Not Detected (Not Detect); blaKPC Carbapenem-Resist Gene Not Detected (Not Detect); mecA Methicillin-Resist Gene Not Detected (Not Detect); vanA/B Vancomycin-Resist Genes Not Detected (Not Detect)
[2019-05-18 11:19] LABS: Hematocrit 37.7 % (37.5-50.1); Hemoglobin 11.8 g/dL (12.9-16.9); Immature Platelets 4.9 % (1.1-6.1); Mean Corpuscular HGB Conc 31.3 g/dL (31.6-35.5); Mean Corpuscular Hemoglobin 29.4 pg (28.0-33.3); Mean Platelet Volume 11.3 fL (9.4-12.4); Red Blood Count 4.01 M/mcL (4.19-5.50); Red Cell Distribution Width 16.2 % (11.5-14.5); White Blood Count 21.1 K/mcL (4.3-11.1)
[2019-05-18 11:27] LABS: Platelet Count 82 K/mcL (140-400)
[2019-05-18 11:31] LABS: Calcium 7.6 mg/dL (8.6-10.3); Potassium 4.4 mEq/L (3.5-5.1)
[2019-05-18 11:56] LABS: Lymphocytes # 1.3 K/mcL (0.6-4.6); Monocytes # 0.4 K/mcL (0.0-1.3); Neutrophils # 19.4 K/mcL (1.6-8.9)
[2019-05-18 11:57] LABS: Platelet Estimate Decreased (Normal)
[2019-05-18 11:58] LABS: Anisocytosis 1+ (Not Present)
[2019-05-18] MEDS ORDERED: Ringers Solution, Lactated 1,000 ML IVC ONE (14:04)
[2019-05-18] MEDS ORDERED: *HR* FentaNYL PATCH 50 MCG PATCH TD SCH (14:30)
[2019-05-18] MEDS ORDERED: *HR* FentaNYL (PF) 100 MCG/2 ML VIAL IVP ONE (14:39)
[2019-05-18] MEDS: Insulin LISPRO 300 UNITS/3 ML VIAL SQ SCH ×4 (14:55→20:06)
[2019-05-18] MEDS: Dexmedetomidine HCl 400 MCG/100 ML MLS IVC SCH ×2 (16:05→21:00)
[2019-05-18] MEDS: Ringers Solution, Lactated 1,000 ML IVC SCH (16:49)
[2019-05-18] MEDS: FentaNYL (PF) 1,000 MCG in 0.9 % Sodium Chloride 80 ML IVC SCH ×2 (16:54→23:03)
[2019-05-18 17:45] LABS: ABG Base Excess -9 mEq/L (-2 to 3); ABG HCO3 17 mEq/L (21-27); ABG Oxygen Saturation 93 % (95-98); ABG PCO2 36 mmHg (35-45); ABG PH 7.27 pH Units (7.32-7.45); ABG PO2 75 mmHg (85-104); ABG TCO2 18 mEq/L (20-26); Blood Gas Modality CPAP/PS; Blood Gas Pressure Support 10 cm H2O
[2019-05-18] MEDS: *HR* Dextrose 50 % in Water (Syg) 50 ML SYRINGE IVP PRN ×3 (20:21→22:51)
[2019-05-18] MEDS: D5% in Lactated Ringers 1,000 ML IVC SCH (23:09)
[2019-05-19] MEDS: Norepinephrine 8 MG in 0.9 % Sodium Chloride 250 ML IVC SCH ×3 (00:01→16:54)
[2019-05-19] MEDS: Dexmedetomidine HCl 400 MCG/100 ML MLS IVC SCH ×6 (00:51→20:02)
[2019-05-19] MEDS: Insulin LISPRO 300 UNITS/3 ML VIAL SQ SCH ×5 (04:33→20:03)
[2019-05-19] MEDS: FentaNYL (PF) 1,000 MCG in 0.9 % Sodium Chloride 80 ML IVC SCH (04:34)
[2019-05-19 04:53] LABS: Mean Corpuscular Hemoglobin 29.2 pg (28.0-33.3); Red Cell Distribution Width 16.5 % (11.5-14.5)
[2019-05-19 04:54] LABS: Hematocrit 34.8 % (37.5-50.1); Hemoglobin 11.1 g/dL (12.9-16.9); Immature Platelets 5.4 % (1.1-6.1); Mean Corpuscular HGB Conc 31.9 g/dL (31.6-35.5); Mean Corpuscular Volume 91.6 fL (83.0-100.0); Mean Platelet Volume 11.5 fL (9.4-12.4); White Blood Count 14.2 K/mcL (4.3-11.1)
[2019-05-19 05:10] LABS: Potassium 4.3 mEq/L (3.5-5.1)
[2019-05-19 05:33] LABS: ABG Base Excess -9 mEq/L (-2 to 3); ABG HCO3 19 mEq/L (21-27); ABG Oxygen Saturation 91 % (95-98); ABG PCO2 48 mmHg (35-45); ABG PH 7.21 pH Units (7.32-7.45); ABG PO2 73 mmHg (85-104); ABG TCO2 21 mEq/L (20-26); Blood Gas Modality ASSIST CONTROL; Blood Gas VT 500 cc
[2019-05-19 05:43] LABS: Platelet Count 38 K/mcL (140-400)
[2019-05-19 05:46] LABS: Lymphocytes # 1.7 K/mcL (0.6-4.6); Monocytes # 1.1 K/mcL (0.0-1.3); Neutrophils # 11.4 K/mcL (1.6-8.9); Platelet Estimate Decreased (Normal)
[2019-05-19] MEDS: Sodium Bicarbonate 150 MEQ in D5% in Water 1,000 ML IVC SCH ×3 (06:09→21:52)
[2019-05-19] MEDS: Ringers Solution, Lactated 1,000 ML IVC SCH ×2 (10:41→10:42)
[2019-05-19] MEDS: D5% in Lactated Ringers 1,000 ML IVC SCH ×2 (10:42→21:40)
[2019-05-19] MEDS ORDERED: Artificial Tears SOLN 15 ML BOTTLE BOTH EYES PRN (10:50)
[2019-05-19] MEDS: Artificial Tears SOLN 15 ML BOTTLE BOTH EYES SCH ×3 (11:49→20:02)
[2019-05-19] MEDS: Chlorhexidine Rinse 15 ML MOUTHWASH MM SCH ×2 (11:49→20:03)
[2019-05-19] MEDS: *HR* Dextrose 50 % in Water (Syg) 50 ML SYRINGE IVP PRN ×2 (16:00→20:13)
[2019-05-19 18:03] LABS: Potassium 4.1 mEq/L (3.5-5.1)
[2019-05-19 18:19] LABS: Uric Acid 6.8 mg/dL (2.3-7.6)
[2019-05-19 19:15] LABS: Sodium, Urine 52.3 mEq/L
[2019-05-19] MEDS: cefTRIAXone 2,000 MG in Water for inj. (sterile) 20 ML IVP SCH (20:03)
[2019-05-20] MEDS: Insulin LISPRO 300 UNITS/3 ML VIAL SQ SCH ×7 (00:08→23:09)
[2019-05-20] MEDS: Norepinephrine 8 MG in 0.9 % Sodium Chloride 250 ML IVC SCH ×2 (00:09→05:35)
[2019-05-20] MEDS: Dexmedetomidine HCl 400 MCG/100 ML MLS IVC SCH ×7 (00:09→23:01)
[2019-05-20] MEDS: *HR* Dextrose 50 % in Water (Syg) 50 ML SYRINGE IVP PRN ×2 (00:10→13:26)
[2019-05-20] MEDS: Artificial Tears SOLN 15 ML BOTTLE BOTH EYES SCH ×7 (00:11→23:09)
[2019-05-20] MEDS ORDERED: *HR* Midazolam HCl 5 MG/5 ML VIAL IVP ONE (02:02)
[2019-05-20] MEDS ORDERED: Haloperidol Lactate 5 MG/ML VIAL IVP ONE (03:13)
[2019-05-20] MEDS ORDERED: Albumin 25% 25gram/100mL 25 GM/100 ML IV.SOLN IVPB ONE (04:07)
[2019-05-20 04:20] LABS: Hematocrit 37.7 % (37.5-50.1); Hemoglobin 11.9 g/dL (12.9-16.9); Mean Corpuscular HGB Conc 31.6 g/dL (31.6-35.5); Mean Corpuscular Volume 91.7 fL (83.0-100.0); Mean Platelet Volume 13.1 fL (9.4-12.4); Red Blood Count 4.11 M/mcL (4.19-5.50); Red Cell Distribution Width 16.6 % (11.5-14.5)
[2019-05-20 04:23] LABS: Albumin 2.2 g/dL (3.5-5.7); Globulin 2.2 g/dL (2.4-3.5); Potassium 4.5 mEq/L (3.5-5.1); Total Protein 4.4 g/dL (6.4-8.9)
[2019-05-20] MEDS: Vasopressin 40 UNIT in D5% in Water 100 ML IVC SCH ×2 (04:32→23:39)
[2019-05-20 04:34] LABS: Platelet Count 35 K/mcL (140-400)
[2019-05-20 05:24] LABS: Lymphocytes # 4.5 K/mcL (0.6-4.6); Microcytosis Present (Not Present); Neutrophils # 27.5 K/mcL (1.6-8.9); Platelet Estimate Decreased (Normal)
[2019-05-20 05:56] LABS: ABG Base Excess -3 mEq/L (-2 to 3); ABG HCO3 26 mEq/L (21-27); ABG Oxygen Saturation 90 % (95-98); ABG PCO2 62 mmHg (35-45); ABG PH 7.23 pH Units (7.32-7.45); ABG PO2 70 mmHg (85-104); ABG TCO2 28 mEq/L (20-26); Blood Gas Modality ASSIST CONTROL; Blood Gas VT 550 cc
[2019-05-20] MEDS: Sodium Bicarbonate 150 MEQ in D5% in Water 1,000 ML IVC SCH ×2 (07:47→20:00)
[2019-05-20] MEDS: Chlorhexidine Rinse 15 ML MOUTHWASH MM SCH ×2 (07:52→20:01)
[2019-05-20] MEDS ORDERED: Ringers Solution, Lactated 1,000 ML IVC ONE (08:14)
[2019-05-20] MEDS ORDERED: VANCOMYCIN IVPB SCH (09:00)
[2019-05-20] MEDS ORDERED: SODIUM CHLORIDE 0.9% IVPB SCH (09:00)
[2019-05-20] MEDS: Norepinephrine 16 MG in 0.9 % Sodium Chloride 250 ML IVC SCH (12:37)
[2019-05-20 13:38] LABS: ABG Base Excess 0 mEq/L (-2 to 3); ABG HCO3 28 mEq/L (21-27); ABG Oxygen Saturation 100 % (95-98); ABG PCO2 61 mmHg (35-45); ABG PH 7.27 pH Units (7.32-7.45); ABG PO2 235 mmHg (85-104); ABG TCO2 30 mEq/L (20-26); Blood Gas Modality AF; Blood Gas VT 550 cc
[2019-05-20] MEDS: Hydrocortisone Sodium Succ 100 MG/2 ML VIAL IVP SCH ×3 (14:29→23:01)
[2019-05-20 16:40] LABS: ABG Base Excess 0 mEq/L (-2 to 3); ABG HCO3 28 mEq/L (21-27); ABG Oxygen Saturation 88 % (95-98); ABG PCO2 62 mmHg (35-45); ABG PH 7.27 pH Units (7.32-7.45); ABG PO2 64 mmHg (85-104); ABG TCO2 30 mEq/L (20-26); Blood Gas Modality AF; Blood Gas VT 550 cc
[2019-05-20] MEDS: *HR* Midazolam HCl 2 MG/2 ML VIAL IVP PRN ×3 (17:31→23:01)
[2019-05-20] MEDS: cefTRIAXone 2,000 MG in Water for inj. (sterile) 20 ML IVP SCH (20:04)
[2019-05-20] MEDS: Ipratropium/Albuterol Neb 3 ML IH PRN (20:39)
[2019-05-20] MEDS: D5% in Lactated Ringers 1,000 ML IVC SCH (23:03)
[2019-05-21] MEDS: Dexmedetomidine HCl 400 MCG/100 ML MLS IVC SCH ×2 (01:33→06:05)
[2019-05-21 03:03] LABS: Basophils % 0.5 %
[2019-05-21 03:05] LABS: Basophils # 0.1 K/mcL (0.0-0.2); Hematocrit 32.7 % (37.5-50.1); Hemoglobin 10.6 g/dL (12.9-16.9); Immature Granulocytes % 1.7 % (0-4); Immature Platelets 9.4 % (1.1-6.1); Lymphocytes # 2.2 K/mcL (0.6-4.6); Lymphocytes % 10.1 %; Mean Corpuscular HGB Conc 32.4 g/dL (31.6-35.5); Mean Corpuscular Hemoglobin 29.1 pg (28.0-33.3); Mean Corpuscular Volume 89.8 fL (83.0-100.0); Mean Platelet Volume 14.3 fL (9.4-12.4); Monocytes # 0.7 K/mcL (0.0-1.3); Neutrophils # 18.8 K/mcL (1.6-8.9); Red Blood Count 3.64 M/mcL (4.19-5.50); Red Cell Distribution Width 16.8 % (11.5-14.5); Segmented Neutrophils % 84.7 %; White Blood Count 22.2 K/mcL (4.3-11.1)
[2019-05-21 03:09] LABS: Platelet Count 17 K/mcL (140-400)
[2019-05-21 03:14] LABS: Calcium 6.9 mg/dL (8.6-10.3); Potassium 5.1 mEq/L (3.5-5.1)
[2019-05-21 03:39] LABS: Platelet Estimate Marked Decrease (Normal)
[2019-05-21] MEDS: Insulin LISPRO 300 UNITS/3 ML VIAL SQ SCH ×6 (03:39→23:48)
[2019-05-21] MEDS: Artificial Tears SOLN 15 ML BOTTLE BOTH EYES SCH ×6 (03:39→23:49)
[2019-05-21 04:40] LABS: INR 1.3; Prothrombin Time 14.3 Seconds (9.4-12.1)
[2019-05-21 04:42] LABS: Activated Partial Thrombo Time 42.1 Seconds (26.0-36.0)
[2019-05-21] MEDS: Hydrocortisone Sodium Succ 100 MG/2 ML VIAL IVP SCH ×4 (05:09→23:48)
[2019-05-21] MEDS ORDERED: 0.9 % Sodium Chloride 1,000 ML IVC ONE (05:59)
[2019-05-21] MEDS ORDERED: 0.9 % Sodium Chloride 1,000 ML ONE (06:02)
[2019-05-21] MEDS: Sodium Bicarbonate 150 MEQ in D5% in Water 1,000 ML IVC SCH ×2 (06:11→18:52)
[2019-05-21 06:16] LABS: ABG Base Excess 4 mEq/L (-2 to 3); ABG HCO3 30 mEq/L (21-27); ABG Oxygen Saturation 92 % (95-98); ABG PCO2 55 mmHg (35-45); ABG PH 7.35 pH Units (7.32-7.45); ABG PO2 69 mmHg (85-104); ABG TCO2 32 mEq/L (20-26); Blood Gas Modality AF; Blood Gas VT 550 cc
[2019-05-21] MEDS ORDERED: 0.9 % Sodium Chloride 250 ML ONE (08:33)
[2019-05-21] MEDS: Chlorhexidine Rinse 15 ML MOUTHWASH MM SCH ×2 (08:34→20:21)
[2019-05-21] MEDS ORDERED: Vancomycin 1 EACH in 0.9 % Sodium Chloride 250 ML IVPB PRN (09:00)
[2019-05-21 09:16] LABS: ABG Base Excess 1 mEq/L (-2 to 3); ABG HCO3 29 mEq/L (21-27); ABG Oxygen Saturation 100 % (95-98); ABG PCO2 57 mmHg (35-45); ABG PH 7.31 pH Units (7.32-7.45); ABG PO2 255 mmHg (85-104); ABG TCO2 31 mEq/L (20-26); Blood Gas Modality AF; Blood Gas VT 550 cc
[2019-05-21 11:22] LABS: VBG Ionized Calcium 0.96 mmol/L (1.15-1.35)
[2019-05-21 11:36] LABS: Calcium 7.3 mg/dL (8.6-10.3); Magnesium 1.5 mg/dL (1.6-2.6); Phosphorous 4.3 mg/dL (2.7-4.5); Potassium 4.8 mEq/L (3.5-5.1)
[2019-05-21] MEDS: Calcium Gluconate 1gm/50mL 1 GM/50 ML BAG IVPB SCH ×2 (12:54→13:54)
[2019-05-21 17:58] LABS: VBG Ionized Calcium 1.01 mmol/L (1.15-1.35)
[2019-05-21] MEDS: cefTRIAXone 2,000 MG in Water for inj. (sterile) 20 ML IVP SCH (20:21)
[2019-05-21] MEDS: Vasopressin 40 UNIT in D5% in Water 100 ML IVC SCH (23:34)
[2019-05-22 03:41] LABS: Basophils % 0.3 %; Eosinophils % 0.1 %
[2019-05-22 03:42] LABS: Basophils # 0.1 K/mcL (0.0-0.2); Hematocrit 27.4 % (37.5-50.1); Hemoglobin 8.8 g/dL (12.9-16.9); Lymphocytes # 3.4 K/mcL (0.6-4.6); Lymphocytes % 13.3 %; Mean Corpuscular HGB Conc 32.1 g/dL (31.6-35.5); Mean Corpuscular Volume 90.4 fL (83.0-100.0); Mean Platelet Volume 11.4 fL (9.4-12.4); Monocytes # 1.2 K/mcL (0.0-1.3); Monocytes % 4.8 %; Neutrophils # 20.3 K/mcL (1.6-8.9); Platelet Count 39 K/mcL (140-400); Red Blood Count 3.03 M/mcL (4.19-5.50); Red Cell Distribution Width 16.6 % (11.5-14.5); Segmented Neutrophils % 79.5 %; White Blood Count 25.5 K/mcL (4.3-11.1)
[2019-05-22] MEDS: Insulin LISPRO 300 UNITS/3 ML VIAL SQ SCH ×5 (03:59→21:29)
[2019-05-22] MEDS: Artificial Tears SOLN 15 ML BOTTLE BOTH EYES SCH ×6 (03:59→23:19)
[2019-05-22 04:01] LABS: Calcium 7.4 mg/dL (8.6-10.3); Potassium 4.3 mEq/L (3.5-5.1)
[2019-05-22] MEDS: Ipratropium/Albuterol Neb 3 ML IH PRN (04:11)
[2019-05-22] MEDS: Hydrocortisone Sodium Succ 100 MG/2 ML VIAL IVP SCH ×3 (05:19→18:02)
[2019-05-22 05:26] LABS: ABG Base Excess 7 mEq/L (-2 to 3); ABG HCO3 35 mEq/L (21-27); ABG Oxygen Saturation 87 % (95-98); ABG PCO2 66 mmHg (35-45); ABG PH 7.33 pH Units (7.32-7.45); ABG PO2 59 mmHg (85-104); ABG TCO2 37 mEq/L (20-26); Blood Gas Modality ASSIST CONTROL; Blood Gas VT 550 cc
[2019-05-22] MEDS: Sodium Bicarbonate 150 MEQ in D5% in Water 1,000 ML IVC SCH ×3 (06:09→18:46)
[2019-05-22] MEDS: Chlorhexidine Rinse 15 ML MOUTHWASH MM SCH ×2 (08:41→20:42)
[2019-05-22] MEDS ORDERED: 0.9 % Sodium Chloride 500 ML ONE (12:48)
[2019-05-22] MEDS ORDERED: *HR* Heparin 5,000 UNIT/ML VIAL ONE (13:34)
[2019-05-22] MEDS ORDERED: Aminoglycoside Consult 1 EACH MC ONE (14:05)
[2019-05-22 14:21] LABS: INR 1.1; Prothrombin Time 12.2 Seconds (9.4-12.1)
[2019-05-22 14:24] LABS: Activated Partial Thrombo Time 30.4 Seconds (26.0-36.0)
[2019-05-22 18:48] LABS: VBG Ionized Calcium 0.96 mmol/L (1.15-1.35)
[2019-05-22] MEDS: 0.9 % Sodium Chloride 1,000 ML PRIME SCH ×3 (19:22→23:16)
[2019-05-22] MEDS: PrismaSATE BGK 4/2.5 5,000 ML CRRT SCH ×4 (19:23→23:18)
[2019-05-22] MEDS: Calcium Chloride 4,000 MG in 0.9 % Sodium Chloride 1,000 ML CRRT SCH (19:26)
[2019-05-22 21:12] LABS: VBG Ionized Calcium 0.83 mmol/L (1.15-1.35)
[2019-05-22] MEDS: cefTRIAXone 2,000 MG in Water for inj. (sterile) 20 ML IVP SCH (21:29)
[2019-05-22] MEDS: Calcium Gluconate 1gm/50mL 1 GM/50 ML BAG IVPB PRN ×2 (21:32→23:39)
[2019-05-22] MEDS: Vasopressin 40 UNIT in D5% in Water 100 ML IVC SCH (23:16)
[2019-05-22 23:37] LABS: VBG Ionized Calcium 0.92 mmol/L (1.15-1.35)
[2019-05-23] MEDS: Insulin LISPRO 300 UNITS/3 ML VIAL SQ SCH ×6 (00:40→21:17)
[2019-05-23] MEDS: Hydrocortisone Sodium Succ 100 MG/2 ML VIAL IVP SCH ×4 (00:42→18:04)
[2019-05-23] MEDS: PrismaSATE BGK 4/2.5 5,000 ML CRRT SCH ×13 (00:43→23:21)
[2019-05-23] MEDS: 0.9 % Sodium Chloride 1,000 ML PRIME SCH ×10 (00:44→23:21)
[2019-05-23 01:11] LABS: VBG Ionized Calcium 0.91 mmol/L (1.15-1.35)
[2019-05-23] MEDS: Calcium Gluconate 1gm/50mL 1 GM/50 ML BAG IVPB PRN ×4 (01:25→07:46)
[2019-05-23 03:14] LABS: Basophils % 0.3 %; Immature Granulocytes % 2.6 % (0-4)
[2019-05-23 03:15] LABS: Basophils # 0.1 K/mcL (0.0-0.2); Hematocrit 33.9 % (37.5-50.1); Hemoglobin 10.2 g/dL (12.9-16.9); Lymphocytes # 4.8 K/mcL (0.6-4.6); Lymphocytes % 12.7 %; Mean Corpuscular HGB Conc 30.1 g/dL (31.6-35.5); Mean Corpuscular Volume 96.3 fL (83.0-100.0); Mean Platelet Volume 11.6 fL (9.4-12.4); Monocytes # 2.5 K/mcL (0.0-1.3); Monocytes % 6.6 %; Neutrophils # 29.4 K/mcL (1.6-8.9); Red Blood Count 3.52 M/mcL (4.19-5.50); Red Cell Distribution Width 16.3 % (11.5-14.5); Segmented Neutrophils % 77.8 %
[2019-05-23] MEDS: Artificial Tears SOLN 15 ML BOTTLE BOTH EYES SCH ×5 (03:15→20:37)
[2019-05-23 03:16] LABS: Platelet Count 73 K/mcL (140-400)
[2019-05-23 03:19] LABS: White Blood Count 37.8 K/mcL (4.3-11.1)
[2019-05-23 03:22] LABS: VBG Ionized Calcium 0.98 mmol/L (1.15-1.35)
[2019-05-23 03:39] LABS: Calcium 8.1 mg/dL (8.6-10.3); Phosphorous 3.1 mg/dL (2.7-4.5); Potassium 4.1 mEq/L (3.5-5.1)
[2019-05-23 03:51] LABS: Platelet Estimate Decreased (Normal)
[2019-05-23 04:34] LABS: ABG Base Excess 3 mEq/L (-2 to 3); ABG HCO3 31 mEq/L (21-27); ABG Oxygen Saturation 96 % (95-98); ABG PCO2 70 mmHg (35-45); ABG PH 7.26 pH Units (7.32-7.45); ABG PO2 97 mmHg (85-104); ABG TCO2 33 mEq/L (20-26); Blood Gas Modality ASSIST CONTROL; Blood Gas VT 550 cc
[2019-05-23 05:21] LABS: VBG Ionized Calcium 0.95 mmol/L (1.15-1.35)
[2019-05-23] MEDS: Sodium Bicarbonate 150 MEQ in D5% in Water 1,000 ML IVC SCH (06:19)
[2019-05-23 07:04] LABS: VBG Ionized Calcium 0.91 mmol/L (1.15-1.35)
[2019-05-23] MEDS: Ipratropium/Albuterol Neb 3 ML IH PRN ×3 (07:38→19:42)
[2019-05-23] MEDS: Chlorhexidine Rinse 15 ML MOUTHWASH MM SCH ×2 (07:47→20:36)
[2019-05-23] MEDS: Calcium Chloride 4,000 MG in 0.9 % Sodium Chloride 1,000 ML CRRT SCH ×2 (09:00→20:00)
[2019-05-23 09:09] LABS: VBG Ionized Calcium 1.26 mmol/L (1.15-1.35)
[2019-05-23] MEDS ORDERED: Pantoprazole 40 MG VIAL IVP SCH (10:57)
[2019-05-23 11:11] LABS: VBG Ionized Calcium 1.26 mmol/L (1.15-1.35)
[2019-05-23] MEDS: Piperacillin/Tazobactam 3.375 GM in 0.9 % Sodium Chloride Mini Bag 100 ML IVPB SCH ×2 (11:57→20:00)
[2019-05-23 14:08] LABS: Hematocrit 32.7 % (37.5-50.1); Hemoglobin 10.1 g/dL (12.9-16.9)
[2019-05-23 15:34] LABS: VBG Ionized Calcium 1.29 mmol/L (1.15-1.35)
[2019-05-23 17:20] LABS: Hematocrit 31.3 % (37.5-50.1); Hemoglobin 9.6 g/dL (12.9-16.9)
[2019-05-23 17:25] LABS: Prothrombin Time 11.2 Seconds (9.4-12.1)
[2019-05-23 17:25] LABS: VBG Ionized Calcium 1.29 mmol/L (1.15-1.35)
[2019-05-23] MEDS: Pantoprazole 40 MG VIAL IVP SCH (18:04)
[2019-05-23 18:58] LABS: VBG Ionized Calcium 1.24 mmol/L (1.15-1.35)
[2019-05-23] MEDS: Vasopressin 40 UNIT in D5% in Water 100 ML IVC SCH (19:36)
[2019-05-23] MEDS: Sennosides/Docusate Sodium TABLET PO SCH (21:18)
[2019-05-24] MEDS: Hydrocortisone Sodium Succ 100 MG/2 ML VIAL IVP SCH ×5 (00:06→23:12)
[2019-05-24] MEDS: Artificial Tears SOLN 15 ML BOTTLE BOTH EYES SCH ×7 (00:06→23:12)
[2019-05-24] MEDS: Insulin LISPRO 300 UNITS/3 ML VIAL SQ SCH ×7 (00:07→23:12)
[2019-05-24 00:25] LABS: ABG Base Excess 3 mEq/L (-2 to 3); ABG HCO3 31 mEq/L (21-27); ABG Oxygen Saturation 98 % (95-98); ABG PCO2 63 mmHg (35-45); ABG PO2 123 mmHg (85-104); ABG TCO2 33 mEq/L (20-26); Blood Gas Modality ASSIST CONTROL; Blood Gas VT 550 cc
[2019-05-24] MEDS: 0.9 % Sodium Chloride 1,000 ML PRIME SCH ×11 (00:44→19:16)
[2019-05-24] MEDS: Sodium Bicarbonate 150 MEQ in D5% in Water 1,000 ML IVC SCH ×3 (00:45→19:16)
[2019-05-24 01:38] LABS: VBG Ionized Calcium 0.89 mmol/L (1.15-1.35)
[2019-05-24] MEDS: Calcium Gluconate 1gm/50mL 1 GM/50 ML BAG IVPB PRN ×11 (02:00→22:49)
[2019-05-24 03:23] LABS: Immature Granulocytes % 2.6 % (0-4)
[2019-05-24 03:25] LABS: Basophils # 0.1 K/mcL (0.0-0.2); Basophils % 0.3 %; Hematocrit 31.5 % (37.5-50.1); Hemoglobin 9.2 g/dL (12.9-16.9); Lymphocytes # 4.2 K/mcL (0.6-4.6); Lymphocytes % 14.9 %; Mean Corpuscular HGB Conc 29.2 g/dL (31.6-35.5); Mean Corpuscular Volume 99.4 fL (83.0-100.0); Mean Platelet Volume 11.6 fL (9.4-12.4); Monocytes # 1.8 K/mcL (0.0-1.3); Monocytes % 6.5 %; Neutrophils # 21.2 K/mcL (1.6-8.9); Red Blood Count 3.17 M/mcL (4.19-5.50); Red Cell Distribution Width 16.1 % (11.5-14.5); Segmented Neutrophils % 75.7 %
[2019-05-24] MEDS: PrismaSATE BGK 4/2.5 5,000 ML CRRT SCH ×11 (03:32→23:14)
[2019-05-24 03:33] LABS: Platelet Count 61 K/mcL (140-400)
[2019-05-24 03:44] LABS: BUN/Creatinine Ratio 17 (6-26); Blood Urea Nitrogen 17 mg/dL (8-23); Calcium 9.2 mg/dL (8.6-10.3); Carbon Dioxide 29 mEq/L (23-29); Chloride 99 mEq/L (98-107); Glucose 124 mg/dL (70-105); Osmolality,Calculated 293 (280-300); Phosphorous 1.8 mg/dL (2.7-4.5); Potassium 4.3 mEq/L (3.5-5.1); Sodium 140 mEq/L (136-145); eGFR For African Americans > 60 (> 60); eGFR For Non-African Americans > 60 (> 60)
[2019-05-24 04:27] LABS: Platelet Estimate Decreased (Normal)
[2019-05-24 04:28] LABS: Stomatocytes 1+ (Not Present)
[2019-05-24] MEDS: Calcium Chloride 4,000 MG in 0.9 % Sodium Chloride 1,000 ML CRRT SCH ×4 (05:00→23:35)
[2019-05-24] MEDS: Piperacillin/Tazobactam 3.375 GM in 0.9 % Sodium Chloride Mini Bag 100 ML IVPB SCH ×3 (05:07→19:26)
[2019-05-24] MEDS: Pantoprazole 40 MG VIAL IVP SCH ×2 (05:08→17:55)
[2019-05-24 05:22] LABS: ABG Base Excess 3 mEq/L (-2 to 3); ABG HCO3 31 mEq/L (21-27); ABG Oxygen Saturation 98 % (95-98); ABG PCO2 69 mmHg (35-45); ABG PH 7.26 pH Units (7.32-7.45); ABG PO2 127 mmHg (85-104); ABG TCO2 33 mEq/L (20-26); Blood Gas Modality ASSIST CONTROL; Blood Gas VT 550 cc
[2019-05-24 07:05] LABS: VBG Ionized Calcium 0.91 mmol/L (1.15-1.35)
[2019-05-24] MEDS: Chlorhexidine Rinse 15 ML MOUTHWASH MM SCH ×2 (07:49→19:26)
[2019-05-24] MEDS: Sennosides/Docusate Sodium TABLET PO SCH ×2 (07:49→19:27)
[2019-05-24] MEDS: Ipratropium/Albuterol Neb 3 ML IH PRN (07:54)
[2019-05-24] MEDS ORDERED: DESMOPRESSIN ACETATE IVPB ONE (09:00)
[2019-05-24] MEDS ORDERED: SODIUM CHLORIDE 0.9% IVPB ONE (09:00)
[2019-05-24 09:31] LABS: VBG Ionized Calcium 0.92 mmol/L (1.15-1.35)
[2019-05-24] MEDS: Budesonide/Formoterol 160/4.5 1 PUFF INH IH SCH ×2 (09:31→21:43)
[2019-05-24] MEDS: Ipratropium/Albuterol Neb 3 ML IH SCH ×3 (09:31→21:43)
[2019-05-24] MEDS: Metoclopramide 10 MG/2 ML VIAL IVP SCH ×4 (09:56→23:12)
[2019-05-24] MEDS ORDERED: Metoclopramide 10 MG/2 ML VIAL IVP SCH (12:00)
[2019-05-24 12:43] LABS: VBG Ionized Calcium 0.97 mmol/L (1.15-1.35)
[2019-05-24 15:34] LABS: VBG Ionized Calcium 0.94 mmol/L (1.15-1.35)
[2019-05-24 16:04] LABS: Hematocrit 30.2 % (37.5-50.1); Hemoglobin 9.2 g/dL (12.9-16.9)
[2019-05-24 17:27] LABS: VBG Ionized Calcium 0.92 mmol/L (1.15-1.35)
[2019-05-24] MEDS: Vasopressin 40 UNIT in D5% in Water 100 ML IVC SCH (19:16)
[2019-05-24] MEDS ORDERED: 0.9 % Sodium Chloride 1,000 ML PRIME PRN (19:18)
[2019-05-24] MEDS: *HR* Midazolam HCl 2 MG/2 ML VIAL IVP PRN (19:27)
[2019-05-24 20:07] LABS: VBG Ionized Calcium 0.82 mmol/L (1.15-1.35)
[2019-05-24 22:43] LABS: VBG Ionized Calcium 0.91 mmol/L (1.15-1.35)
[2019-05-24 23:27] LABS: Adenovirus Not Detected (Not Detect); Bordetella Pertussis Not Detected (Not Detect); Chlamydophila pneumoniae Not Detected (Not Detect); Coronavirus 229E Not Detected (Not Detect); Coronavirus HKU1 Not Detected (Not Detect); Coronavirus NL63 Not Detected (Not Detect); Coronavirus OC43 Not Detected (Not Detect); Human Metapneumovirus Not Detected (Not Detect); Human Rhinovirus/Enterovirus Not Detected (Not Detect); Influenza A Subtype 2009 H1 Not Detected (Not Detect); Influenza B Not Detected (Not Detect); Mycoplasma pneumoniae Not Detected (Not Detect); Parainfluenza Virus 1 Not Detected (Not Detect); Parainfluenza Virus 2 Not Detected (Not Detect); Parainfluenza Virus 3 Not Detected (Not Detect); Parainfluenza Virus 4 Not Detected (Not Detect); Respiratory Syncytial Virus Not Detected (Not Detect)
[2019-05-25] MEDS: PrismaSATE BGK 4/2.5 5,000 ML CRRT SCH ×7 (00:07→13:40)
[2019-05-25] MEDS: *HR* Midazolam HCl 2 MG/2 ML VIAL IVP PRN (00:17)
[2019-05-25 00:27] LABS: VBG Ionized Calcium 0.96 mmol/L (1.15-1.35)
[2019-05-25] MEDS: Calcium Gluconate 1gm/50mL 1 GM/50 ML BAG IVPB PRN ×3 (01:09→07:50)
[2019-05-25] MEDS: Ipratropium/Albuterol Neb 3 ML IH SCH ×4 (03:22→22:39)
[2019-05-25] MEDS: Artificial Tears SOLN 15 ML BOTTLE BOTH EYES SCH ×6 (03:28→23:22)
[2019-05-25] MEDS: Insulin LISPRO 300 UNITS/3 ML VIAL SQ SCH ×6 (03:28→23:19)
[2019-05-25] MEDS: Piperacillin/Tazobactam 3.375 GM in 0.9 % Sodium Chloride Mini Bag 100 ML IVPB SCH ×3 (03:34→20:53)
[2019-05-25 04:07] LABS: ABG Base Excess 3 mEq/L (-2 to 3); ABG HCO3 29 mEq/L (21-27); ABG Oxygen Saturation 98 % (95-98); ABG PCO2 56 mmHg (35-45); ABG PH 7.33 pH Units (7.32-7.45); ABG PO2 114 mmHg (85-104); ABG TCO2 31 mEq/L (20-26); Blood Gas Modality AF; Blood Gas VT 550 cc
[2019-05-25] MEDS: Calcium Chloride 4,000 MG in 0.9 % Sodium Chloride 1,000 ML CRRT SCH ×3 (04:12→12:51)
[2019-05-25 04:20] LABS: Basophils % 0.2 %; Mean Corpuscular Volume 96.3 fL (83.0-100.0); Red Cell Distribution Width 15.9 % (11.5-14.5); Segmented Neutrophils % 76.9 %
[2019-05-25 04:22] LABS: Hematocrit 28.6 % (37.5-50.1); Hemoglobin 8.6 g/dL (12.9-16.9); Immature Granulocytes % 5.3 % (0-4); Immature Platelets 6.9 % (1.1-6.1); Lymphocytes # 2.9 K/mcL (0.6-4.6); Lymphocytes % 12.8 %; Mean Corpuscular HGB Conc 30.1 g/dL (31.6-35.5); Mean Platelet Volume 11.1 fL (9.4-12.4); Monocytes # 1.1 K/mcL (0.0-1.3); Monocytes % 4.8 %; Neutrophils # 17.5 K/mcL (1.6-8.9); Red Blood Count 2.97 M/mcL (4.19-5.50); White Blood Count 22.8 K/mcL (4.3-11.1)
[2019-05-25 04:25] LABS: VBG Ionized Calcium 0.91 mmol/L (1.15-1.35)
[2019-05-25 04:31] LABS: Basophils # 0.1 K/mcL (0.0-0.2); Platelet Count 66 K/mcL (140-400)
[2019-05-25 04:41] LABS: BUN/Creatinine Ratio 14 (6-26); Blood Urea Nitrogen 10 mg/dL (8-23); Calcium 11.8 mg/dL (8.6-10.3); Carbon Dioxide 27 mEq/L (23-29); Chloride 100 mEq/L (98-107); Glucose 135 mg/dL (70-105); Osmolality,Calculated 295 (280-300); Sodium 142 mEq/L (136-145); eGFR For African Americans > 60 (> 60); eGFR For Non-African Americans > 60 (> 60)
[2019-05-25] MEDS: Hydrocortisone Sodium Succ 100 MG/2 ML VIAL IVP SCH ×3 (05:12→18:45)
[2019-05-25] MEDS: Pantoprazole 40 MG VIAL IVP SCH ×2 (05:12→18:50)
[2019-05-25] MEDS: Metoclopramide 10 MG/2 ML VIAL IVP SCH ×4 (05:12→23:21)
[2019-05-25 06:22] LABS: VBG Ionized Calcium 0.79 mmol/L (1.15-1.35)
[2019-05-25 06:43] LABS: VBG Ionized Calcium 0.84 mmol/L (1.15-1.35)
[2019-05-25] MEDS: Chlorhexidine Rinse 15 ML MOUTHWASH MM SCH ×2 (07:52→20:35)
[2019-05-25] MEDS: Sennosides/Docusate Sodium TABLET PO SCH ×2 (07:52→20:36)
[2019-05-25] MEDS ORDERED: *HR* Metoprolol 5 MG/5 ML VIAL IVP PRN (09:22)
[2019-05-25] MEDS ORDERED: *HR* Metoprolol 5 MG/5 ML VIAL IVP ONE (09:29)
[2019-05-25] MEDS: Budesonide/Formoterol 160/4.5 1 PUFF INH IH SCH ×2 (09:58→22:38)
[2019-05-25 10:25] LABS: VBG Ionized Calcium 1.07 mmol/L (1.15-1.35)
[2019-05-25] MEDS ORDERED: Dexmedetomidine HCl 400 MCG/100 ML MLS IVC ONE (10:57)
[2019-05-25] MEDS: Dexmedetomidine HCl 400 MCG/100 ML MLS IVC SCH (11:05)
[2019-05-25] MEDS: Sodium Bicarbonate 150 MEQ in D5% in Water 1,000 ML IVC SCH ×2 (12:16→23:17)
[2019-05-25 13:54] LABS: VBG Ionized Calcium 1.17 mmol/L (1.15-1.35)
[2019-05-25 14:02] LABS: Hematocrit 27.6 % (37.5-50.1); Hemoglobin 8.4 g/dL (12.9-16.9)
[2019-05-25] MEDS: Vasopressin 40 UNIT in D5% in Water 100 ML IVC SCH (18:50)
[2019-05-25] MEDS: *HR* Heparin 5,000 UNIT/ML VIAL HE PRN (18:58)
[2019-05-25] MEDS ORDERED: Hydrocortisone Sodium Succ 100 MG/2 ML VIAL IVP SCH (19:00)
[2019-05-26] MEDS: Norepinephrine 16 MG in 0.9 % Sodium Chloride 250 ML IVC SCH (03:37)
[2019-05-26 03:43] LABS: Red Cell Distribution Width 15.5 % (11.5-14.5)
[2019-05-26] MEDS: Ipratropium/Albuterol Neb 3 ML IH SCH ×4 (03:44→21:31)
[2019-05-26 03:45] LABS: Hematocrit 23.4 % (37.5-50.1); Hemoglobin 7.3 g/dL (12.9-16.9); Immature Platelets 5.3 % (1.1-6.1); Mean Corpuscular HGB Conc 31.2 g/dL (31.6-35.5); Mean Corpuscular Hemoglobin 29.3 pg (28.0-33.3); Mean Platelet Volume 10.6 fL (9.4-12.4); Red Blood Count 2.49 M/mcL (4.19-5.50); White Blood Count 12.8 K/mcL (4.3-11.1)
[2019-05-26 03:46] LABS: Platelet Count 67 K/mcL (140-400)
[2019-05-26] MEDS: Insulin LISPRO 300 UNITS/3 ML VIAL SQ SCH ×5 (03:48→20:41)
[2019-05-26] MEDS: Artificial Tears SOLN 15 ML BOTTLE BOTH EYES SCH ×5 (03:48→20:47)
[2019-05-26] MEDS: Piperacillin/Tazobactam 3.375 GM in 0.9 % Sodium Chloride Mini Bag 100 ML IVPB SCH ×3 (03:50→20:46)
[2019-05-26] MEDS: Hydrocortisone Sodium Succ 100 MG/2 ML VIAL IVP SCH ×3 (03:50→20:45)
[2019-05-26 04:12] LABS: BUN/Creatinine Ratio 14 (6-26); Blood Urea Nitrogen 18 mg/dL (8-23); Calcium 14.4 mg/dL (8.6-10.3); Carbon Dioxide 27 mEq/L (23-29); Chloride 107 mEq/L (98-107); Glucose 91 mg/dL (70-105); Osmolality,Calculated 295 (280-300); Potassium 3.6 mEq/L (3.5-5.1); Sodium 142 mEq/L (136-145); eGFR For African Americans > 60 (> 60); eGFR For Non-African Americans 54 (> 60)
[2019-05-26 04:18] LABS: Monocytes # 0.3 K/mcL (0.0-1.3); Neutrophils # 11.5 K/mcL (1.6-8.9)
[2019-05-26 04:19] LABS: Platelet Estimate Decreased (Normal)
[2019-05-26 04:49] LABS: ABG Base Excess 5 mEq/L (-2 to 3); ABG HCO3 31 mEq/L (21-27); ABG Oxygen Saturation 98 % (95-98); ABG PCO2 52 mmHg (35-45); ABG PH 7.38 pH Units (7.32-7.45); ABG PO2 119 mmHg (85-104); ABG TCO2 32 mEq/L (20-26); Blood Gas Modality ASSIST CONTROL; Blood Gas VT 550 cc
[2019-05-26] MEDS: Dexmedetomidine HCl 400 MCG/100 ML MLS IVC SCH (05:25)
[2019-05-26] MEDS: Pantoprazole 40 MG VIAL IVP SCH (05:28)
[2019-05-26] MEDS: Metoclopramide 10 MG/2 ML VIAL IVP SCH ×3 (05:28→18:43)
[2019-05-26] MEDS: Chlorhexidine Rinse 15 ML MOUTHWASH MM SCH ×2 (08:34→20:45)
[2019-05-26] MEDS: Sennosides/Docusate Sodium TABLET PO SCH ×2 (08:34→20:46)
[2019-05-26] MEDS: Budesonide/Formoterol 160/4.5 1 PUFF INH IH SCH ×2 (09:25→21:31)
[2019-05-26] MEDS: Sodium Bicarbonate 150 MEQ in D5% in Water 1,000 ML IVC SCH (10:34)
[2019-05-26 16:18] LABS: Magnesium 1.8 mg/dL (1.6-2.6)
[2019-05-26 16:33] LABS: Calcium 13.7 mg/dL (8.6-10.3); Potassium 3.9 mEq/L (3.5-5.1)
[2019-05-26] MEDS: Vasopressin 40 UNIT in D5% in Water 100 ML IVC SCH (18:43)
[2019-05-27] MEDS: Insulin LISPRO 300 UNITS/3 ML VIAL SQ SCH ×6 (00:02→20:41)
[2019-05-27] MEDS: Artificial Tears SOLN 15 ML BOTTLE BOTH EYES SCH ×6 (00:03→19:27)
[2019-05-27] MEDS: Metoclopramide 10 MG/2 ML VIAL IVP SCH (00:03)
[2019-05-27] MEDS: Dexmedetomidine HCl 400 MCG/100 ML MLS IVC SCH ×2 (00:03→19:26)
[2019-05-27] MEDS: Ipratropium/Albuterol Neb 3 ML IH SCH ×4 (03:20→21:25)
[2019-05-27] MEDS: Piperacillin/Tazobactam 3.375 GM in 0.9 % Sodium Chloride Mini Bag 100 ML IVPB SCH ×3 (03:50→19:28)
[2019-05-27] MEDS: Hydrocortisone Sodium Succ 100 MG/2 ML VIAL IVP SCH ×3 (03:50→18:02)
[2019-05-27 04:13] LABS: ABG Base Excess 3 mEq/L (-2 to 3); ABG HCO3 28 mEq/L (21-27); ABG Oxygen Saturation 98 % (95-98); ABG PCO2 45 mmHg (35-45); ABG PO2 113 mmHg (85-104); ABG TCO2 29 mEq/L (20-26); Blood Gas Modality AF; Blood Gas VT 550 cc
[2019-05-27 04:19] LABS: Basophils % 0.1 %; Eosinophils # 0.1 K/mcL (0.0-0.6); Eosinophils % 0.4 %; Hematocrit 23.3 % (37.5-50.1); Hemoglobin 7.1 g/dL (12.9-16.9); Immature Granulocytes % 5.7 % (0-4); Immature Platelets 5.2 % (1.1-6.1); Lymphocytes # 3.2 K/mcL (0.6-4.6); Lymphocytes % 16.9 %; Mean Corpuscular HGB Conc 30.5 g/dL (31.6-35.5); Mean Corpuscular Hemoglobin 29.3 pg (28.0-33.3); Mean Corpuscular Volume 96.3 fL (83.0-100.0); Mean Platelet Volume 11.3 fL (9.4-12.4); Monocytes # 0.9 K/mcL (0.0-1.3); Monocytes % 4.6 %; Neutrophils # 13.8 K/mcL (1.6-8.9); Platelet Count 100 K/mcL (140-400); Red Blood Count 2.42 M/mcL (4.19-5.50); Red Cell Distribution Width 15.3 % (11.5-14.5); Segmented Neutrophils % 72.3 %; White Blood Count 19.1 K/mcL (4.3-11.1)
[2019-05-27 04:53] LABS: Potassium 3.7 mEq/L (3.5-5.1)
[2019-05-27 05:07] LABS: Platelet Estimate Decreased (Normal)
[2019-05-27] MEDS: Chlorhexidine Rinse 15 ML MOUTHWASH MM SCH ×2 (10:06→19:27)
[2019-05-27] MEDS: Sennosides/Docusate Sodium TABLET PO SCH ×2 (10:07→19:28)
[2019-05-27] MEDS: Pantoprazole 40 MG VIAL IVP SCH (10:07)
[2019-05-27] MEDS: *HR* Heparin 5,000 UNIT/ML VIAL SQ SCH ×3 (10:09→20:41)
[2019-05-27] MEDS: Budesonide/Formoterol 160/4.5 1 PUFF INH IH SCH ×2 (12:01→21:25)
[2019-05-27] MEDS ORDERED: *HR* Heparin 10,000 UNIT/10 ML VIAL IV PRN (12:08)
[2019-05-27] MEDS ORDERED: 0.9 % Sodium Chloride 250 ML IVC PRN (12:08)
[2019-05-27] MEDS ORDERED: 0.9 % Sodium Chloride 1,000 ML PRIME SCH (12:15)
[2019-05-27 13:51] LABS: Hepatitis B Surface Antibody < 3.10 mIU/mL
[2019-05-27 14:02] LABS: Hepatitis B Surface Antigen Nonreactive (Nonreactive)
[2019-05-27] MEDS: *HR* Heparin 5,000 UNIT/ML VIAL HE PRN (16:55)
[2019-05-27] MEDS: Vasopressin 40 UNIT in D5% in Water 100 ML IVC SCH (19:26)
[2019-05-28] MEDS: Insulin LISPRO 300 UNITS/3 ML VIAL SQ SCH ×6 (00:21→20:33)
[2019-05-28] MEDS: Artificial Tears SOLN 15 ML BOTTLE BOTH EYES SCH ×6 (00:22→20:33)
[2019-05-28] MEDS: Piperacillin/Tazobactam 3.375 GM in 0.9 % Sodium Chloride Mini Bag 100 ML IVPB SCH ×3 (03:07→20:33)
[2019-05-28] MEDS: Hydrocortisone Sodium Succ 100 MG/2 ML VIAL IVP SCH ×2 (03:07→15:53)
[2019-05-28] MEDS: Ipratropium/Albuterol Neb 3 ML IH SCH ×4 (03:39→21:11)
[2019-05-28 03:47] LABS: Eosinophils % 1.5 %; Hemoglobin 7.2 g/dL (12.9-16.9); Mean Corpuscular Volume 94.3 fL (83.0-100.0)
[2019-05-28 03:49] LABS: Basophils % 0.1 %; Eosinophils # 0.3 K/mcL (0.0-0.6); Hematocrit 23.3 % (37.5-50.1); Immature Granulocytes % 4.8 % (0-4); Immature Platelets 4.6 % (1.1-6.1); Lymphocytes # 3.9 K/mcL (0.6-4.6); Lymphocytes % 22.9 %; Mean Corpuscular HGB Conc 30.9 g/dL (31.6-35.5); Mean Corpuscular Hemoglobin 29.1 pg (28.0-33.3); Mean Platelet Volume 10.9 fL (9.4-12.4); Monocytes # 0.9 K/mcL (0.0-1.3); Monocytes % 5.4 %; Neutrophils # 11.2 K/mcL (1.6-8.9); Platelet Count 105 K/mcL (140-400); Red Blood Count 2.47 M/mcL (4.19-5.50); Red Cell Distribution Width 15.4 % (11.5-14.5); Segmented Neutrophils % 65.3 %; White Blood Count 17.1 K/mcL (4.3-11.1)
[2019-05-28 03:55] LABS: Calcium 10.6 mg/dL (8.6-10.3); Magnesium 1.7 mg/dL (1.6-2.6); Phosphorous 1.5 mg/dL (2.7-4.5); Potassium 3.4 mEq/L (3.5-5.1)
[2019-05-28] MEDS: *HR* Heparin 5,000 UNIT/ML VIAL SQ SCH ×3 (04:27→20:36)
[2019-05-28 04:30] LABS: Platelet Estimate Decreased (Normal)
[2019-05-28 05:19] LABS: ABG Base Excess 5 mEq/L (-2 to 3); ABG HCO3 27 mEq/L (21-27); ABG Oxygen Saturation 97 % (95-98); ABG PCO2 27 mmHg (35-45); ABG PO2 74 mmHg (85-104); ABG TCO2 27 mEq/L (20-26); Blood Gas Modality AF; Blood Gas VT 550 cc
[2019-05-28] MEDS: Sennosides/Docusate Sodium TABLET PO SCH ×2 (09:25→20:36)
[2019-05-28] MEDS: Pantoprazole 40 MG VIAL IVP SCH (09:25)
[2019-05-28] MEDS: Chlorhexidine Rinse 15 ML MOUTHWASH MM SCH ×2 (09:25→20:36)
[2019-05-28] MEDS: Budesonide/Formoterol 160/4.5 1 PUFF INH IH SCH ×2 (09:58→21:11)
[2019-05-28] MEDS ORDERED: Albumin 25% 25gram/100mL 25 GM/100 ML IV.SOLN IVPB ONE (10:04)
[2019-05-28] MEDS ORDERED: Furosemide 80 MG in 0.9 % Sodium Chloride 50 ML IVPB ONE (10:04)
[2019-05-28] MEDS ORDERED: 0.9 % Sodium Chloride 250 ML ONE (17:40)
[2019-05-28] MEDS: Dexmedetomidine HCl 400 MCG/100 ML MLS IVC SCH (19:25)
[2019-05-28] MEDS: Vasopressin 40 UNIT in D5% in Water 100 ML IVC SCH (19:25)
[2019-05-28] MEDS: *HR* Midazolam HCl 2 MG/2 ML VIAL IVP PRN ×2 (20:44→23:20)
[2019-05-29] MEDS: Insulin LISPRO 300 UNITS/3 ML VIAL SQ SCH ×7 (00:41→23:11)
[2019-05-29] MEDS: Artificial Tears SOLN 15 ML BOTTLE BOTH EYES SCH ×7 (00:42→23:11)
[2019-05-29] MEDS: *HR* Midazolam HCl 2 MG/2 ML VIAL IVP PRN ×4 (02:40→22:42)
[2019-05-29] MEDS: Ipratropium/Albuterol Neb 3 ML IH SCH ×4 (03:12→21:40)
[2019-05-29] MEDS: Hydrocortisone Sodium Succ 100 MG/2 ML VIAL IVP SCH ×2 (03:31→16:02)
[2019-05-29] MEDS: Piperacillin/Tazobactam 3.375 GM in 0.9 % Sodium Chloride Mini Bag 100 ML IVPB SCH ×2 (03:33→13:10)
[2019-05-29 04:05] LABS: ABG Base Excess 3 mEq/L (-2 to 3); ABG HCO3 27 mEq/L (21-27); ABG Oxygen Saturation 97 % (95-98); ABG PCO2 41 mmHg (35-45); ABG PH 7.43 pH Units (7.32-7.45); ABG PO2 92 mmHg (85-104); ABG TCO2 28 mEq/L (20-26); Blood Gas Modality AF; Blood Gas VT 550 cc
[2019-05-29 04:26] LABS: Basophils % 0.2 %; Mean Corpuscular Volume 94.2 fL (83.0-100.0)
[2019-05-29 04:28] LABS: Eosinophils # 0.3 K/mcL (0.0-0.6); Eosinophils % 2.3 %; Hematocrit 22.8 % (37.5-50.1); Hemoglobin 7.2 g/dL (12.9-16.9); Immature Granulocytes % 4.5 % (0-4); Immature Platelets 4.5 % (1.1-6.1); Lymphocytes # 2.8 K/mcL (0.6-4.6); Lymphocytes % 25.9 %; Mean Corpuscular HGB Conc 31.6 g/dL (31.6-35.5); Mean Corpuscular Hemoglobin 29.8 pg (28.0-33.3); Monocytes # 0.5 K/mcL (0.0-1.3); Monocytes % 4.9 %; Neutrophils # 6.8 K/mcL (1.6-8.9); Red Blood Count 2.42 M/mcL (4.19-5.50); Red Cell Distribution Width 15.6 % (11.5-14.5); Segmented Neutrophils % 62.2 %; White Blood Count 10.9 K/mcL (4.3-11.1)
[2019-05-29 04:43] LABS: Calcium 9.7 mg/dL (8.6-10.3); Potassium 3.7 mEq/L (3.5-5.1)
[2019-05-29 04:59] LABS: Platelet Count 95 K/mcL (140-400)
[2019-05-29] MEDS: *HR* Heparin 5,000 UNIT/ML VIAL SQ SCH ×3 (05:14→21:19)
[2019-05-29] MEDS: Pantoprazole 40 MG VIAL IVP SCH (08:26)
[2019-05-29] MEDS: Chlorhexidine Rinse 15 ML MOUTHWASH MM SCH ×2 (08:26→19:42)
[2019-05-29] MEDS: Sennosides/Docusate Sodium TABLET PO SCH ×2 (08:27→19:42)
[2019-05-29] MEDS ORDERED: *HR* Heparin 5,000 UNIT/ML VIAL ONE (09:33)
[2019-05-29] MEDS: Budesonide/Formoterol 160/4.5 1 PUFF INH IH SCH ×2 (09:47→21:40)
[2019-05-29] MEDS ORDERED: Potassium Phosphate 44 MEQ in 0.9 % Sodium Chloride 250 ML IVPB ONE (10:29)
[2019-05-29 15:04] LABS: INR 1.1; Prothrombin Time 12.5 Seconds (9.4-12.1)
[2019-05-29 15:41] LABS: Albumin 2.9 g/dL (3.5-5.7); Albumin/Globulin Ratio 1.4 (1.1-2.2); Bilirubin,Direct 0.4 mg/dL (0.0-0.2); Bilirubin,Indirect 0.4 mg/dL (0.0-1.0); Bilirubin,Total 0.8 mg/dL (0.3-1.0); Globulin 2.1 g/dL (2.4-3.5)
[2019-05-29] MEDS ORDERED: Bisacodyl 10 MG RECTAL SUPPOSITORY RC PRN (16:04)
[2019-05-29] MEDS ORDERED: *HR* Heparin 10,000 UNIT/10 ML VIAL IV PRN (17:01)
[2019-05-29] MEDS ORDERED: 0.9 % Sodium Chloride 250 ML IVC PRN (17:01)
[2019-05-29] MEDS ORDERED: 0.9 % Sodium Chloride 1,000 ML PRIME SCH (17:15)
[2019-05-29 17:22] LABS: Hematocrit 24.2 % (37.5-50.1); Hemoglobin 7.7 g/dL (12.9-16.9)
[2019-05-29] MEDS: Dexmedetomidine HCl 400 MCG/100 ML MLS IVC SCH ×2 (19:09→23:50)
[2019-05-29] MEDS: Vasopressin 40 UNIT in D5% in Water 100 ML IVC SCH (19:09)
[2019-05-29] MEDS: *HR* Dextrose 50 % in Water (Syg) 50 ML SYRINGE IVP PRN (23:33)
[2019-05-30] MEDS: Piperacillin/Tazobactam 3.375 GM in 0.9 % Sodium Chloride Mini Bag 100 ML IVPB SCH ×2 (01:02→15:22)
[2019-05-30] MEDS: Ipratropium/Albuterol Neb 3 ML IH SCH ×5 (03:11→22:36)
[2019-05-30] MEDS: Insulin LISPRO 300 UNITS/3 ML VIAL SQ SCH ×5 (03:37→20:16)
[2019-05-30] MEDS: Hydrocortisone Sodium Succ 100 MG/2 ML VIAL IVP SCH ×2 (03:37→15:21)
[2019-05-30] MEDS: Artificial Tears SOLN 15 ML BOTTLE BOTH EYES SCH ×6 (03:37→22:49)
[2019-05-30 03:54] LABS: Basophils % 0.3 %; Eosinophils # 0.4 K/mcL (0.0-0.6); Eosinophils % 3.4 %; Hematocrit 25.3 % (37.5-50.1); Hemoglobin 8.1 g/dL (12.9-16.9); Immature Granulocytes % 4.2 % (0-4); Lymphocytes # 3.4 K/mcL (0.6-4.6); Lymphocytes % 27.5 %; Mean Corpuscular Hemoglobin 29.8 pg (28.0-33.3); Mean Platelet Volume 10.9 fL (9.4-12.4); Monocytes # 0.8 K/mcL (0.0-1.3); Monocytes % 6.4 %; Neutrophils # 7.1 K/mcL (1.6-8.9); Platelet Count 111 K/mcL (140-400); Red Blood Count 2.72 M/mcL (4.19-5.50); Red Cell Distribution Width 15.9 % (11.5-14.5); Segmented Neutrophils % 58.2 %; White Blood Count 12.2 K/mcL (4.3-11.1)
[2019-05-30 04:11] LABS: Albumin 3.1 g/dL (3.5-5.7); Albumin/Globulin Ratio 1.2 (1.1-2.2); Calcium 8.8 mg/dL (8.6-10.3); Globulin 2.6 g/dL (2.4-3.5); Potassium 3.4 mEq/L (3.5-5.1); Total Protein 5.7 g/dL (6.4-8.9)
[2019-05-30 05:10] LABS: ABG Base Excess 5 mEq/L (-2 to 3); ABG HCO3 27 mEq/L (21-27); ABG Oxygen Saturation 97 % (95-98); ABG PCO2 29 mmHg (35-45); ABG PH 7.59 pH Units (7.32-7.45); ABG PO2 78 mmHg (85-104); ABG TCO2 28 mEq/L (20-26); Blood Gas VT 550 cc
[2019-05-30] MEDS: *HR* Heparin 5,000 UNIT/ML VIAL SQ SCH ×3 (05:14→21:11)
[2019-05-30] MEDS: Sennosides/Docusate Sodium TABLET PO SCH ×2 (08:02→19:58)
[2019-05-30] MEDS: Pantoprazole 40 MG VIAL IVP SCH (08:02)
[2019-05-30] MEDS: Chlorhexidine Rinse 15 ML MOUTHWASH MM SCH ×2 (08:02→20:48)
[2019-05-30] MEDS: Vasopressin 40 UNIT in D5% in Water 100 ML IVC SCH (08:03)
[2019-05-30] MEDS ORDERED: *HR* FentaNYL (PF) 100 MCG/2 ML VIAL IVP PRN (08:49)
[2019-05-30] MEDS ORDERED: Albumin 25% 25gram/100mL 25 GM/100 ML IV.SOLN IVPB ONE (09:22)
[2019-05-30] MEDS ORDERED: Potassium Phosphate 44 MEQ in 0.9 % Sodium Chloride 250 ML IVPB PRN (09:56)
[2019-05-30] MEDS ORDERED: Calcium Gluconate 1gm/50mL 1 GM/50 ML BAG IVPB PRN (09:56)
[2019-05-30] MEDS: Budesonide/Formoterol 160/4.5 1 PUFF INH IH SCH ×2 (10:42→22:29)
[2019-05-30] MEDS ORDERED: Furosemide 100 MG in 0.9 % Sodium Chloride 50 ML IVPB ONE (11:00)
[2019-05-30 11:13] LABS: Magnesium 1.9 mg/dL (1.6-2.6); Phosphorous 3.4 mg/dL (2.7-4.5)
[2019-05-30] MEDS ORDERED: *HR* Heparin 10,000 UNIT/10 ML VIAL IV PRN (12:02)
[2019-05-30] MEDS ORDERED: 0.9 % Sodium Chloride 250 ML IVC PRN (12:02)
[2019-05-30] MEDS ORDERED: Perflutren Lipid Microsphere 1.3 ML in 0.9 % Sodium Chloride 8.7 ML IVP ONE (12:06)
[2019-05-30] MEDS: Dexmedetomidine HCl 400 MCG/100 ML MLS IVC SCH (21:14)
[2019-05-31] MEDS: Artificial Tears SOLN 15 ML BOTTLE BOTH EYES SCH (00:46)
[2019-05-31] MEDS: Insulin LISPRO 300 UNITS/3 ML VIAL SQ SCH ×7 (00:46→23:48)
[2019-05-31] MEDS: Piperacillin/Tazobactam 3.375 GM in 0.9 % Sodium Chloride Mini Bag 100 ML IVPB SCH ×2 (02:09→14:41)
[2019-05-31] MEDS: Hydrocortisone Sodium Succ 100 MG/2 ML VIAL IVP SCH (02:10)
[2019-05-31 03:30] LABS: Basophils % 0.2 %; Eosinophils # 0.4 K/mcL (0.0-0.6); Eosinophils % 3.1 %; Hematocrit 24.7 % (37.5-50.1); Hemoglobin 7.9 g/dL (12.9-16.9); Lymphocytes % 23.6 %; Mean Corpuscular Hemoglobin 29.9 pg (28.0-33.3); Mean Corpuscular Volume 93.6 fL (83.0-100.0); Mean Platelet Volume 10.9 fL (9.4-12.4); Monocytes # 0.8 K/mcL (0.0-1.3); Monocytes % 6.6 %; Neutrophils # 8.1 K/mcL (1.6-8.9); Platelet Count 141 K/mcL (140-400); Red Blood Count 2.64 M/mcL (4.19-5.50); Red Cell Distribution Width 15.7 % (11.5-14.5); Segmented Neutrophils % 64.5 %; White Blood Count 12.5 K/mcL (4.3-11.1)
[2019-05-31 03:32] LABS: VBG Ionized Calcium 1.12 mmol/L (1.15-1.35)
[2019-05-31] MEDS: Ipratropium/Albuterol Neb 3 ML IH SCH ×4 (03:45→22:09)
[2019-05-31 03:54] LABS: Calcium 8.9 mg/dL (8.6-10.3); Potassium 2.9 mEq/L (3.5-5.1)
[2019-05-31] MEDS: *HR* Heparin 5,000 UNIT/ML VIAL SQ SCH ×3 (04:14→21:42)
[2019-05-31 04:36] LABS: Phosphorous 3.2 mg/dL (2.7-4.5)
[2019-05-31] MEDS ORDERED: Potassium Chloride 40 MEQ, Lidocaine 1% 2 ML in 0.9 % Sodium Chloride 500 ML IVPB ONE (07:27)
[2019-05-31 08:38] LABS: Magnesium 2.3 mg/dL (1.6-2.6)
[2019-05-31] MEDS: Pantoprazole 40 MG VIAL IVP SCH (08:40)
[2019-05-31] MEDS: Sennosides/Docusate Sodium TABLET PO SCH ×2 (08:41→21:14)
[2019-05-31] MEDS: Budesonide/Formoterol 160/4.5 1 PUFF INH IH SCH ×2 (09:24→22:09)
[2019-05-31] MEDS ORDERED: *HR* Midazolam HCl 2 MG/2 ML VIAL IVP PRN (10:21)
[2019-05-31] MEDS ORDERED: 0.9 % Sodium Chloride 250 ML IVC PRN (10:21)
[2019-05-31] MEDS ORDERED: Bisacodyl 10 MG RECTAL SUPPOSITORY RC PRN (10:21)
[2019-05-31] MEDS ORDERED: Dextrose Gel 15 GM/37.5 ML TUBE PO PRN ×2 (10:21)
[2019-05-31] MEDS ORDERED: Ipratropium/Albuterol Neb 3 ML IH PRN (10:21)
[2019-05-31] MEDS ORDERED: *HR* Dextrose 50 % in Water (Syg) 50 ML SYRINGE IVP PRN (10:21)
[2019-05-31] MEDS ORDERED: *HR* Metoprolol 5 MG/5 ML VIAL IVP PRN (10:21)
[2019-05-31] MEDS ORDERED: *HR* Heparin 5,000 UNIT/ML VIAL HE PRN (10:21)
[2019-05-31] MEDS ORDERED: Ondansetron 4 MG/2 ML VIAL IVP PRN (10:21)
[2019-05-31] MEDS ORDERED: 0.9 % Sodium Chloride 1,000 ML PRIME SCH (10:21)
[2019-05-31] MEDS ORDERED: Naloxone 0.4 MG/ML INJ IVP PRN (10:21)
[2019-05-31] MEDS ORDERED: D5% in Water 1,000 ML IVC PRN (10:21)
[2019-05-31] MEDS ORDERED: Albumin 25% 25gram/100mL 25 GM/100 ML IV.SOLN IVPB ONE (10:27)
[2019-05-31] MEDS ORDERED: Furosemide 80 MG in 0.9 % Sodium Chloride 50 ML IVPB ONE (12:45)
[2019-05-31] MEDS ORDERED: Vasopressin 40 UNIT in D5% in Water 100 ML IVC SCH (12:45)
[2019-05-31] MEDS ORDERED: Hydrocortisone Sodium Succ 100 MG/2 ML VIAL IVP SCH (15:00)
[2019-05-31 19:33] LABS: Potassium 3.2 mEq/L (3.5-5.1)
[2019-06-01] MEDS: Piperacillin/Tazobactam 3.375 GM in 0.9 % Sodium Chloride Mini Bag 100 ML IVPB SCH ×2 (01:30→14:54)
[2019-06-01] MEDS: Ipratropium/Albuterol Neb 3 ML IH SCH ×4 (03:23→21:32)
[2019-06-01 04:25] LABS: Basophils % 0.4 %; Eosinophils # 0.2 K/mcL (0.0-0.6); Eosinophils % 2.7 %; Hematocrit 22.2 % (37.5-50.1); Immature Granulocytes % 1.2 % (0-4); Lymphocytes # 2.6 K/mcL (0.6-4.6); Lymphocytes % 31.2 %; Mean Corpuscular HGB Conc 31.5 g/dL (31.6-35.5); Mean Corpuscular Hemoglobin 29.8 pg (28.0-33.3); Mean Corpuscular Volume 94.5 fL (83.0-100.0); Mean Platelet Volume 11.5 fL (9.4-12.4); Monocytes # 0.6 K/mcL (0.0-1.3); Monocytes % 7.4 %; Neutrophils # 4.7 K/mcL (1.6-8.9); Platelet Count 163 K/mcL (140-400); Red Blood Count 2.35 M/mcL (4.19-5.50); Red Cell Distribution Width 15.6 % (11.5-14.5); Segmented Neutrophils % 57.1 %; White Blood Count 8.2 K/mcL (4.3-11.1)
[2019-06-01] MEDS: Insulin LISPRO 300 UNITS/3 ML VIAL SQ SCH ×5 (04:25→21:31)
[2019-06-01 04:44] LABS: Calcium 8.8 mg/dL (8.6-10.3); Potassium 2.8 mEq/L (3.5-5.1)
[2019-06-01] MEDS: *HR* Heparin 5,000 UNIT/ML VIAL SQ SCH ×3 (05:37→21:31)
[2019-06-01] MEDS: Sennosides/Docusate Sodium TABLET PO SCH ×2 (09:23→20:54)
[2019-06-01] MEDS: Pantoprazole 40 MG VIAL IVP SCH (09:26)
[2019-06-01] MEDS: Budesonide/Formoterol 160/4.5 1 PUFF INH IH SCH ×2 (09:45→21:32)
[2019-06-01] MEDS: Sodium Bicarbonate 50 MEQ in D5% in Water 1,000 ML IVC SCH ×2 (11:55→22:37)
[2019-06-01 14:17] LABS: Calcium 8.7 mg/dL (8.6-10.3); Potassium 3.3 mEq/L (3.5-5.1)
[2019-06-01] MEDS: Hydrocortisone Sodium Succ 100 MG/2 ML VIAL IVP SCH (14:53)
[2019-06-01] MEDS ORDERED: Hydrocortisone Sodium Succ 100 MG/2 ML VIAL IVP SCH (15:00)
[2019-06-01] MEDS ORDERED: E-Z-PAQUE (BARIUM SULF) SUSP 1 BOTTLE PO ONE (15:59)
[2019-06-01] MEDS ORDERED: E-Z-HD (BARIUM SULF) SUSPENSION PO ONE (15:59)
[2019-06-01] MEDS ORDERED: Potassium Chloride Elixir 20 MEQ/15 ML UDC PO ONE (16:54)
[2019-06-02] MEDS: Ipratropium/Albuterol Neb 3 ML IH SCH ×4 (01:00→22:05)
[2019-06-02] MEDS: Piperacillin/Tazobactam 3.375 GM in 0.9 % Sodium Chloride Mini Bag 100 ML IVPB SCH (01:31)
[2019-06-02 03:33] LABS: Hemoglobin 7.4 g/dL (12.9-16.9); Mean Corpuscular HGB Conc 32.2 g/dL (31.6-35.5); Mean Corpuscular Hemoglobin 29.6 pg (28.0-33.3); Mean Platelet Volume 10.6 fL (9.4-12.4); Platelet Count 207 K/mcL (140-400); Red Cell Distribution Width 15.8 % (11.5-14.5); White Blood Count 7.9 K/mcL (4.3-11.1)
[2019-06-02 03:45] LABS: INR 1.1; Prothrombin Time 12.5 Seconds (9.4-12.1)
[2019-06-02 03:55] LABS: Calcium 8.6 mg/dL (8.6-10.3); Magnesium 1.9 mg/dL (1.6-2.6)
[2019-06-02] MEDS: *HR* Heparin 5,000 UNIT/ML VIAL SQ SCH ×3 (07:43→22:32)
[2019-06-02] MEDS ORDERED: 0.9 % Sodium Chloride 250 ML IVC PRN (09:29)
[2019-06-02] MEDS: Insulin LISPRO 300 UNITS/3 ML VIAL SQ SCH ×4 (09:51→22:24)
[2019-06-02] MEDS: Sennosides/Docusate Sodium TABLET PO SCH ×2 (10:00→22:33)
[2019-06-02] MEDS: Pantoprazole 40 MG VIAL IVP SCH (10:01)
[2019-06-02] MEDS: Budesonide/Formoterol 160/4.5 1 PUFF INH IH SCH ×2 (10:49→22:05)
[2019-06-02] MEDS: Hydrocortisone Sodium Succ 100 MG/2 ML VIAL IVP SCH (15:39)
[2019-06-02] MEDS ORDERED: *HR* Heparin 10,000 UNIT/10 ML VIAL IV PRN (16:24)
[2019-06-03] MEDS: Ipratropium/Albuterol Neb 3 ML IH SCH ×4 (03:40→22:36)
[2019-06-03] MEDS: *HR* Heparin 5,000 UNIT/ML VIAL SQ SCH ×3 (04:41→23:29)
[2019-06-03 05:09] LABS: Basophils # 0.1 K/mcL (0.0-0.2); Basophils % 0.7 %; Eosinophils # 0.3 K/mcL (0.0-0.6); Eosinophils % 3.8 %; Hematocrit 23.6 % (37.5-50.1); Hemoglobin 7.5 g/dL (12.9-16.9); Immature Granulocytes % 0.6 % (0-4); Lymphocytes # 2.7 K/mcL (0.6-4.6); Lymphocytes % 32.9 %; Mean Corpuscular HGB Conc 31.8 g/dL (31.6-35.5); Mean Corpuscular Hemoglobin 28.8 pg (28.0-33.3); Mean Corpuscular Volume 90.8 fL (83.0-100.0); Mean Platelet Volume 10.8 fL (9.4-12.4); Monocytes % 11.5 %; Neutrophils # 4.2 K/mcL (1.6-8.9); Platelet Count 267 K/mcL (140-400); Red Cell Distribution Width 15.6 % (11.5-14.5); Segmented Neutrophils % 50.5 %; White Blood Count 8.2 K/mcL (4.3-11.1)
[2019-06-03 05:33] LABS: Calcium 8.2 mg/dL (8.6-10.3); Magnesium 1.6 mg/dL (1.6-2.6); Potassium 3.8 mEq/L (3.5-5.1)
[2019-06-03] MEDS: Insulin LISPRO 300 UNITS/3 ML VIAL SQ SCH ×4 (08:10→23:25)
[2019-06-03] MEDS: Pantoprazole 40 MG VIAL IVP SCH (09:23)
[2019-06-03] MEDS: Sennosides/Docusate Sodium TABLET PO SCH ×2 (09:23→23:27)
[2019-06-03] MEDS: Budesonide/Formoterol 160/4.5 1 PUFF INH IH SCH ×2 (10:27→22:36)
[2019-06-03] MEDS: Hydrocortisone Sodium Succ 100 MG/2 ML VIAL IVP SCH (15:01)
[2019-06-03] MEDS: Vasopressin 40 UNIT in D5% in Water 100 ML IVC SCH (19:28)
[2019-06-04] MEDS: Ipratropium/Albuterol Neb 3 ML IH SCH ×4 (03:24→21:51)
[2019-06-04 05:17] LABS: Basophils # 0.1 K/mcL (0.0-0.2); Basophils % 0.6 %; Eosinophils # 0.3 K/mcL (0.0-0.6); Eosinophils % 3.5 %; Hematocrit 23.1 % (37.5-50.1); Hemoglobin 7.2 g/dL (12.9-16.9); Immature Granulocytes % 0.8 % (0-4); Lymphocytes # 3.2 K/mcL (0.6-4.6); Lymphocytes % 35.7 %; Mean Corpuscular HGB Conc 31.2 g/dL (31.6-35.5); Mean Corpuscular Hemoglobin 29.4 pg (28.0-33.3); Mean Corpuscular Volume 94.3 fL (83.0-100.0); Mean Platelet Volume 11.1 fL (9.4-12.4); Monocytes # 0.8 K/mcL (0.0-1.3); Monocytes % 9.3 %; Neutrophils # 4.5 K/mcL (1.6-8.9); Platelet Count 265 K/mcL (140-400); Red Blood Count 2.45 M/mcL (4.19-5.50); Red Cell Distribution Width 15.6 % (11.5-14.5); Segmented Neutrophils % 50.1 %; White Blood Count 8.9 K/mcL (4.3-11.1)
[2019-06-04 05:37] LABS: Calcium 8.3 mg/dL (8.6-10.3); Potassium 3.2 mEq/L (3.5-5.1)
[2019-06-04] MEDS: Pantoprazole 40 MG VIAL IVP SCH (09:21)
[2019-06-04] MEDS: Sennosides/Docusate Sodium TABLET PO SCH ×2 (09:21→22:21)
[2019-06-04] MEDS: *HR* Heparin 5,000 UNIT/ML VIAL SQ SCH ×3 (09:21→22:22)
[2019-06-04] MEDS: Insulin LISPRO 300 UNITS/3 ML VIAL SQ SCH ×4 (09:22→22:20)
[2019-06-04] MEDS: Budesonide/Formoterol 160/4.5 1 PUFF INH IH SCH ×2 (10:56→21:45)
[2019-06-05 03:58] LABS: Hemoglobin 7.3 g/dL (12.9-16.9); Mean Corpuscular HGB Conc 31.7 g/dL (31.6-35.5); Mean Corpuscular Hemoglobin 29.6 pg (28.0-33.3); Mean Corpuscular Volume 93.1 fL (83.0-100.0); Mean Platelet Volume 10.6 fL (9.4-12.4); Platelet Count 275 K/mcL (140-400); Red Blood Count 2.47 M/mcL (4.19-5.50); Red Cell Distribution Width 15.5 % (11.5-14.5); White Blood Count 8.6 K/mcL (4.3-11.1)
[2019-06-05 04:12] LABS: Calcium 8.1 mg/dL (8.6-10.3); Potassium 3.4 mEq/L (3.5-5.1)
[2019-06-05] MEDS: Ipratropium/Albuterol Neb 3 ML IH SCH ×4 (04:18→22:30)
[2019-06-05] MEDS: *HR* Heparin 5,000 UNIT/ML VIAL SQ SCH ×3 (05:01→23:24)
[2019-06-05] MEDS ORDERED: 0.9 % Sodium Chloride 250 ML IVC PRN (07:51)
[2019-06-05] MEDS ORDERED: 0.9 % Sodium Chloride 1,000 ML PRIME SCH (08:00)
[2019-06-05] MEDS: Insulin LISPRO 300 UNITS/3 ML VIAL SQ SCH ×4 (09:26→22:01)
[2019-06-05] MEDS: Pantoprazole 40 MG VIAL IVP SCH (09:33)
[2019-06-05] MEDS: Sennosides/Docusate Sodium TABLET PO SCH ×2 (09:33→23:23)
[2019-06-05] MEDS: Budesonide/Formoterol 160/4.5 1 PUFF INH IH SCH ×2 (10:08→22:30)
[2019-06-05] MEDS ORDERED: *HR* Heparin 10,000 UNIT/10 ML VIAL IV PRN (15:50)
[2019-06-06] MEDS: Ipratropium/Albuterol Neb 3 ML IH SCH ×4 (03:47→22:08)
[2019-06-06] MEDS: *HR* Heparin 5,000 UNIT/ML VIAL SQ SCH ×3 (05:22→20:20)
[2019-06-06 06:01] LABS: Calcium 8.3 mg/dL (8.6-10.3); Potassium 3.3 mEq/L (3.5-5.1)
[2019-06-06] MEDS: Insulin LISPRO 300 UNITS/3 ML VIAL SQ SCH ×4 (09:25→19:53)
[2019-06-06] MEDS: Sennosides/Docusate Sodium TABLET PO SCH ×2 (09:28→20:20)
[2019-06-06] MEDS: Budesonide/Formoterol 160/4.5 1 PUFF INH IH SCH ×2 (10:19→19:34)
[2019-06-06] MEDS ORDERED: Heparin 1,000 UNITS/500 mL 500 ML ONE (11:33)
[2019-06-06] MEDS ORDERED: *HR* Midazolam HCl 2 MG/2 ML VIAL IVP ONE (11:47)
[2019-06-06] MEDS ORDERED: *HR* FentaNYL (PF) 100 MCG/2 ML VIAL IVP ONE (11:47)
[2019-06-06] MEDS ORDERED: CeFAZolin Premix DUPLEX 2,000 MG/50 ML BAG IVPB ONE (11:48)
[2019-06-06] MEDS ORDERED: 0.9 % Sodium Chloride 500 ML ONE (12:26)
[2019-06-06] MEDS ORDERED: *HR* Heparin 5,000 UNIT/ML VIAL ONE (12:41)
[2019-06-07] MEDS: Ipratropium/Albuterol Neb 3 ML IH SCH ×2 (03:31→10:23)
[2019-06-07 04:47] LABS: Hematocrit 21.8 % (37.5-50.1); Hemoglobin 7.1 g/dL (12.9-16.9); Mean Corpuscular HGB Conc 32.6 g/dL (31.6-35.5); Mean Corpuscular Hemoglobin 29.7 pg (28.0-33.3); Mean Corpuscular Volume 91.2 fL (83.0-100.0); Mean Platelet Volume 10.4 fL (9.4-12.4); Platelet Count 237 K/mcL (140-400); Red Blood Count 2.39 M/mcL (4.19-5.50); Red Cell Distribution Width 15.4 % (11.5-14.5); White Blood Count 7.2 K/mcL (4.3-11.1)
[2019-06-07 05:06] LABS: Calcium 8.2 mg/dL (8.6-10.3); Magnesium 1.7 mg/dL (1.6-2.6); Potassium 3.3 mEq/L (3.5-5.1)
[2019-06-07] MEDS: *HR* Heparin 5,000 UNIT/ML VIAL SQ SCH (06:42)
[2019-06-07] MEDS ORDERED: 0.9 % Sodium Chloride 250 ML IVC PRN (07:33)
[2019-06-07] MEDS: Sennosides/Docusate Sodium TABLET PO SCH (08:32)
[2019-06-07] MEDS: Insulin LISPRO 300 UNITS/3 ML VIAL SQ SCH ×2 (08:32→12:13)
[2019-06-07] MEDS: Budesonide/Formoterol 160/4.5 1 PUFF INH IH SCH (10:23)
[2019-06-07 13:51] VITALS: BP 127/75
== END 2019-06-07 15:00 | disposition hospice, home (50) | DRG 659 ==
LOC: CDU 21:03 → EMEROOARM 21:03 → ICNU 05-18 01:46 → SUATTDRO 05-18 01:58 → ICNU 05-18 05:06 → 2ANU 05-31 13:52
PROVIDERS: ADMIT Internal Medicine; ATTEND Internal Medicine
PROC: IRPERMA (2019-06-06 13:00)

== ENCOUNTER 2019-12-19 15:21 | Inpatient (IN) ==
[2019-12-19] MEDS ORDERED: Isovue-370 500 ML BOTTLE IVP ONE (15:34)
[2019-12-19] MEDS ORDERED: Ondansetron 4 MG/2 ML VIAL IVP ONE (15:56)
[2019-12-19 16:00] LABS: Basophils # 0.2 K/mcL (0.0-0.2); Basophils % 0.7 %; Eosinophils # 0.3 K/mcL (0.0-0.6); Eosinophils % 1.1 %; Hemoglobin 7.8 g/dL (12.9-16.9); Immature Granulocytes % 4.2 % (0-4); Lymphocytes # 4.7 K/mcL (0.6-4.6); Lymphocytes % 19.9 %; Mean Corpuscular Hemoglobin 26.4 pg (28.0-33.3); Mean Corpuscular Volume 87.8 fL (83.0-100.0); Mean Platelet Volume 8.4 fL (9.4-12.4); Monocytes # 1.4 K/mcL (0.0-1.3); Monocytes % 5.9 %; Neutrophils # 16.2 K/mcL (1.6-8.9); Platelet Count 378 K/mcL (140-400); Red Blood Count 2.96 M/mcL (4.19-5.50); Red Cell Distribution Width 14.3 % (11.5-14.5); Segmented Neutrophils % 68.2 %; White Blood Count 23.7 K/mcL (4.3-11.1)
[2019-12-19 16:06] LABS: INR 1.5; Prothrombin Time 17.5 Seconds (9.4-12.1)
[2019-12-19 16:25] LABS: Alanine Aminotransferase 28 Units/L (7-52); Albumin 2.9 g/dL (3.5-5.7); Albumin/Globulin Ratio 0.7 (1.1-2.2); Alkaline Phosphatase 173 Units/L (34-104); Aspartate Amino Transferase 43 Units/L (13-39); BUN/Creatinine Ratio 14 (6-26); Bilirubin,Total 0.9 mg/dL (0.3-1.0); Blood Urea Nitrogen 48 mg/dL (8-23); Calcium 9.1 mg/dL (8.6-10.3); Carbon Dioxide 21 mEq/L (23-29); Chloride 106 mEq/L (98-107); Globulin 4.3 g/dL (2.4-3.5); Glucose 104 mg/dL (70-105); Magnesium 2.2 mg/dL (1.6-2.6); Osmolality,Calculated 301 (280-300); Potassium 4.4 mEq/L (3.5-5.1); Sodium 139 mEq/L (136-145); Total Protein 7.2 g/dL (6.4-8.9); Troponin I < 0.03 ng/mL (< 0.04); eGFR For African Americans 22 (> 60); eGFR For Non-African Americans 18 (> 60)
[2019-12-19 17:29] LABS: Bacteria,Urine Moderate per hpf (None-Few); Bilirubin,Urine Negative (Negative); Blood,Urine Small (Negative); Clarity,Urine Ex.Turbid (Clear); Color,Urine Yellow (Yellow); Glucose,Urine (UA) Normal (Normal); Ketones,Urine Negative (Negative); Leukocyte Esterase,Urine Large (Negative); Nitrite,Urine Negative (Negative); PH,Urine 6.5 pH Units (5.0-8.0); Protein,Urine 100 mg/dL (Neg-Trace); RBC,Urine 50-100 per hpf (0-3); Specific Gravity,Urine 1.016 (1.010-1.025); Squamous Epithelial Cell,Urine Few per hpf (None-Few); Urobilinogen,Urine Normal (Normal); WBC,Urine TNTC per hpf (0-3)
[2019-12-19] MEDS ORDERED: Piperacillin/Tazobactam 3.375 GM in 0.9 % Sodium Chloride Mini Bag 100 ML IVPB ONE (18:23)
[2019-12-19] MEDS ORDERED: Ertapenem 1,000 MG in 0.9 % Sodium Chloride Mini Bag 100 ML IVPB ONE (19:05)
[2019-12-19] MEDS ORDERED: Naloxone 0.4 MG/ML INJ IVP PRN (19:38)
[2019-12-20 05:30] LABS: Basophils # 0.2 K/mcL (0.0-0.2); Eosinophils # 0.4 K/mcL (0.0-0.6); Eosinophils % 1.9 %; Hematocrit 25.5 % (37.5-50.1); Hemoglobin 7.4 g/dL (12.9-16.9); Lymphocytes # 4.5 K/mcL (0.6-4.6); Mean Corpuscular Hemoglobin 26.1 pg (28.0-33.3); Mean Corpuscular Volume 90.1 fL (83.0-100.0); Mean Platelet Volume 8.5 fL (9.4-12.4); Monocytes # 1.4 K/mcL (0.0-1.3); Monocytes % 7.3 %; Neutrophils # 12.4 K/mcL (1.6-8.9); Platelet Count 324 K/mcL (140-400); Red Blood Count 2.83 M/mcL (4.19-5.50); Red Cell Distribution Width 14.5 % (11.5-14.5); Segmented Neutrophils % 62.8 %; White Blood Count 19.8 K/mcL (4.3-11.1)
[2019-12-20 05:48] LABS: Calcium 8.1 mg/dL (8.6-10.3); Potassium 3.7 mEq/L (3.5-5.1)
[2019-12-20] MEDS ORDERED: *HR* Heparin 5,000 UNIT/ML VIAL SQ SCH (06:00)
[2019-12-20] MEDS: Ondansetron 4 MG/2 ML VIAL IVP PRN ×2 (08:19→16:15)
[2019-12-20 10:04] LABS: Adenovirus Not Detected (Not Detect); Coronavirus 229E Not Detected (Not Detect); Coronavirus HKU1 Not Detected (Not Detect); Coronavirus NL63 Not Detected (Not Detect); Coronavirus OC43 Not Detected (Not Detect)
[2019-12-20 10:05] LABS: Bordetella Pertussis Not Detected (Not Detect); Chlamydophila pneumoniae Not Detected (Not Detect); Human Metapneumovirus Not Detected (Not Detect); Human Rhinovirus/Enterovirus Not Detected (Not Detect); Influenza A Subtype 2009 H1 Not Detected (Not Detect); Influenza B Not Detected (Not Detect); Mycoplasma pneumoniae Not Detected (Not Detect); Parainfluenza Virus 1 Not Detected (Not Detect); Parainfluenza Virus 2 Not Detected (Not Detect); Parainfluenza Virus 3 Not Detected (Not Detect); Parainfluenza Virus 4 Not Detected (Not Detect); Respiratory Syncytial Virus Not Detected (Not Detect)
[2019-12-20] MEDS ORDERED: Ringers Solution, Lactated 1,000 ML IVC SCH (11:45)
[2019-12-20] MEDS ORDERED: Morphine Sulfate Oral CONC 10 MG/0.5 ML ORAL.SYG PO PRN (12:04)
[2019-12-20] MEDS: QUEtiapine Fumarate 25 MG TABLET PO SCH ×2 (13:31→20:40)
[2019-12-20 14:57] LABS: Acinetobacter baumannii by PCR Not Detected (Not Detect); Candida albicans by PCR Not Detected (Not Detect); Candida glabrata by PCR Not Detected (Not Detect); Candida krusei by PCR Not Detected (Not Detect); Candida parapsilosis by PCR Not Detected (Not Detect); Candida tropicalis by PCR Not Detected (Not Detect); Enterobacter cloacae Cmplx PCR Not Detected (Not Detect); Enterobacteriaceae by PCR Not Detected (Not Detect); Enterococcus by PCR Not Detected (Not Detect); Escherichia coli by PCR Not Detected (Not Detect); Klebsiella oxytoca by PCR Not Detected (Not Detect); Klebsiella pneumoniae by PCR Not Detected (Not Detect); Proteus by PCR Not Detected (Not Detect); Pseudomonas aeruginosa by PCR Not Detected (Not Detect); Serratia marcescens by PCR Not Detected (Not Detect); Staphylococcus aureus by PCR Not Detected (Not Detect); Staphylococcus by PCR DETECTED (Not Detect); Streptococcus agalactiae(B)PCR Not Detected (Not Detect); Streptococcus by PCR Not Detected (Not Detect); Streptococcus pneumoniae PCR Not Detected (Not Detect); Streptococcus pyogenes (A) PCR Not Detected (Not Detect); mecA Methicillin-Resist Gene DETECTED (Not Detect)
[2019-12-20] MEDS ORDERED: Vancomycin 1,250 MG/262.5 ML IV.SOLN IVPB ONE (15:17)
[2019-12-20] MEDS ORDERED: Vancomycin 1 EACH in 0.9 % Sodium Chloride 250 ML IVPB PRN (16:00)
[2019-12-21 02:04] LABS: Mean Corpuscular HGB Conc 28.8 g/dL (31.6-35.5); Mean Platelet Volume 8.4 fL (9.4-12.4); Red Cell Distribution Width 14.5 % (11.5-14.5)
[2019-12-21 02:06] LABS: Hematocrit 22.2 % (37.5-50.1); Hemoglobin 6.4 g/dL (12.9-16.9); Mean Corpuscular Hemoglobin 26.7 pg (28.0-33.3); Mean Corpuscular Volume 92.5 fL (83.0-100.0); Platelet Count 273 K/mcL (140-400)
[2019-12-21 02:22] LABS: Calcium 7.9 mg/dL (8.6-10.3); Magnesium 2.1 mg/dL (1.6-2.6); Potassium 3.8 mEq/L (3.5-5.1)
[2019-12-21] MEDS: QUEtiapine Fumarate 25 MG TABLET PO SCH ×2 (08:33→20:36)
[2019-12-21] MEDS ORDERED: *HR* Propofol 200 MG/20 ML VIAL IVP ONE (10:58)
[2019-12-21] MEDS ORDERED: Lidocaine -MPF 2% 2 ML VIAL ONE (10:58)
[2019-12-21] MEDS ORDERED: *HR* FentaNYL (PF) 100 MCG/2 ML VIAL ONE (10:58)
[2019-12-21] MEDS ORDERED: Dexamethasone 4 MG/ML VIAL ONE (10:58)
[2019-12-21] MEDS ORDERED: Ondansetron 4 MG/2 ML VIAL ONE (10:58)
[2019-12-21] MEDS ORDERED: Isovue-300 50ML VIAL ONE ×2 (11:38→12:34)
[2019-12-21] MEDS ORDERED: 0.9 % Sodium Chloride 250 ML ONE (11:41)
[2019-12-21] MEDS ORDERED: *HR* Vasopressin 20 UNIT/ML VIAL ONE (11:54)
[2019-12-21] MEDS ORDERED: EPHEDrine 50 MG/ML VIAL ONE (12:11)
[2019-12-21] MEDS ORDERED: EPINEPHrine 1 MG/ML VIAL ONE (12:14)
[2019-12-21] MEDS ORDERED: Lidocaine HCL 4 ML Topical Solution (Laryng-O-Jet Kit Sterile Pak) TP ONE (12:40)
[2019-12-21] MEDS ORDERED: *HR* FentaNYL (PF) 100 MCG/2 ML VIAL IVP PRN (12:47)
[2019-12-21] MEDS ORDERED: Naloxone 0.4 MG/ML INJ IVP PRN (15:01)
[2019-12-21] MEDS ORDERED: Vancomycin 1 EACH in 0.9 % Sodium Chloride 250 ML IVPB PRN (15:01)
[2019-12-21] MEDS ORDERED: Ondansetron 4 MG/2 ML VIAL IVP PRN (15:01)
[2019-12-21] MEDS ORDERED: Morphine Sulfate Oral CONC 10 MG/0.5 ML ORAL.SYG PO PRN (15:01)
[2019-12-22 05:36] LABS: Hematocrit 27.4 % (37.5-50.1); Hemoglobin 8.5 g/dL (12.9-16.9); Mean Corpuscular Hemoglobin 27.4 pg (28.0-33.3); Mean Corpuscular Volume 88.4 fL (83.0-100.0); Mean Platelet Volume 8.5 fL (9.4-12.4); Platelet Count 322 K/mcL (140-400); Red Cell Distribution Width 14.7 % (11.5-14.5); White Blood Count 18.5 K/mcL (4.3-11.1)
[2019-12-22 05:53] LABS: Calcium 7.9 mg/dL (8.6-10.3); Potassium 4.5 mEq/L (3.5-5.1)
[2019-12-22] MEDS: QUEtiapine Fumarate 25 MG TABLET PO SCH ×2 (10:06→19:40)
[2019-12-23 07:37] LABS: Hemoglobin 8.4 g/dL (12.9-16.9); Mean Corpuscular Hemoglobin 27.3 pg (28.0-33.3); Mean Corpuscular Volume 90.9 fL (83.0-100.0); Mean Platelet Volume 8.8 fL (9.4-12.4); Platelet Count 283 K/mcL (140-400); Red Blood Count 3.08 M/mcL (4.19-5.50); Red Cell Distribution Width 14.9 % (11.5-14.5); White Blood Count 16.9 K/mcL (4.3-11.1)
[2019-12-23 07:50] LABS: Calcium 7.7 mg/dL (8.6-10.3); Potassium 4.1 mEq/L (3.5-5.1)
[2019-12-23 11:06] VITALS: BP 117/71
[2019-12-23] MEDS: QUEtiapine Fumarate 25 MG TABLET PO SCH (11:55)
== END 2019-12-23 12:04 | disposition hospice, home (50) | DRG 659 ==
LOC: 2NENU 15:21 → EMEROOARM 15:21 → SUATTDRO 19:41 → 2NENU 20:49 → 2ANU 12-20 12:54
PROVIDERS: ADMIT Family Medicine; ATTEND Internal Medicine

== ENCOUNTER 2021-06-25 13:52 | Inpatient (IN) ==
[2021-06-25 16:38] LABS: Bilirubin,Urine Negative (Negative); Blood,Urine Moderate (Negative); Budding Yeast,Urine Many per hpf (None Seen); Clarity,Urine Ex.Turbid (Clear); Color,Urine Yellow (Yellow); Glucose,Urine (UA) Normal (Normal); Ketones,Urine 60 mg/dL (Negative); Leukocyte Esterase,Urine Large (Negative); Mucus,Urine Few per lpf (None-Few); Nitrite,Urine Positive (Negative); Protein,Urine 70 mg/dL (Neg-Trace); RBC,Urine TNTC per hpf (0-3); Specific Gravity,Urine 1.014 (1.010-1.025); Squamous Epithelial Cell,Urine Few per hpf (None-Few); Urobilinogen,Urine Normal (Normal); WBC,Urine TNTC per hpf (0-3)
[2021-06-25 16:42] LABS: Hematocrit 32.1 % (37.5-50.1); Hemoglobin 9.7 g/dL (12.9-16.9); Mean Corpuscular HGB Conc 30.2 g/dL (31.6-35.5); Mean Corpuscular Hemoglobin 29.7 pg (28.0-33.3); Mean Corpuscular Volume 98.2 fL (83.0-100.0); Platelet Count 264 K/mcL (140-400); Red Blood Count 3.27 M/mcL (4.19-5.50); Red Cell Distribution Width 13.6 % (11.5-14.5); White Blood Count 16.1 K/mcL (4.3-11.1)
[2021-06-25 17:11] LABS: Eosinophils # 0.3 K/mcL (0.0-0.6); Lymphocytes # 3.1 K/mcL (0.6-4.6); Monocytes # 0.8 K/mcL (0.0-1.3); Neutrophils # 11.3 K/mcL (1.6-8.9)
[2021-06-25 17:12] LABS: Platelet Estimate Normal (Normal)
[2021-06-25 17:24] LABS: Albumin 3.2 g/dL (3.5-5.7); Albumin/Globulin Ratio 0.9 (1.1-2.2); Bilirubin,Total 0.4 mg/dL (0.3-1.0); Calcium 8.3 mg/dL (8.6-10.3); Globulin 3.4 g/dL (2.4-3.5); Potassium 4.8 mEq/L (3.5-5.1); Total Protein 6.6 g/dL (6.4-8.9)
[2021-06-25] MEDS ORDERED: levoFLOXacin 750 MG/150 ML 750 MG/150 ML BAG IVPB ONE (17:37)
[2021-06-25] MEDS ORDERED: Piperacillin/Tazobactam 3.375 GM in 0.9 % Sodium Chloride Mini Bag 100 ML IVPB ONE (17:49)
[2021-06-25] MEDS ORDERED: Naloxone 0.4 MG/ML INJ IVP PRN (18:08)
[2021-06-25] MEDS ORDERED: Ondansetron ODT 4 MG TAB.RAPDIS SL PRN (18:08)
[2021-06-25] MEDS ORDERED: Melatonin 3 MG TABLET PO PRN (18:08)
[2021-06-25] MEDS ORDERED: Mag Hydrox/Al Hydrox/Simeth 30 ML UDC PO PRN (18:08)
[2021-06-25] MEDS ORDERED: Dextrose Gel 15 GM/37.5 ML TUBE PO PRN ×2 (18:14)
[2021-06-25] MEDS ORDERED: D5% in Water 1,000 ML IVC PRN (18:14)
[2021-06-25] MEDS ORDERED: *HR* Dextrose 50 % in Water (Syg) 50 ML SYRINGE IVP PRN (18:14)
[2021-06-25] MEDS: D5% in 0.9% NACL 1,000 ML IVC SCH (18:32)
[2021-06-25] MEDS: Piperacillin/Tazobactam 3.375 GM in 0.9 % Sodium Chloride Mini Bag 100 ML IVPB SCH (22:32)
[2021-06-26] MEDS: Piperacillin/Tazobactam 3.375 GM in 0.9 % Sodium Chloride Mini Bag 100 ML IVPB SCH ×3 (04:08→18:57)
[2021-06-26 04:52] LABS: Eosinophils # 0.5 K/mcL (0.0-0.6); Eosinophils % 3.6 %; Hematocrit 31.5 % (37.5-50.1); Hemoglobin 9.5 g/dL (12.9-16.9); Immature Granulocytes % 5.9 % (0-4); Lymphocytes # 3.6 K/mcL (0.6-4.6); Lymphocytes % 24.9 %; Mean Corpuscular HGB Conc 30.2 g/dL (31.6-35.5); Mean Corpuscular Hemoglobin 29.9 pg (28.0-33.3); Mean Corpuscular Volume 99.1 fL (83.0-100.0); Monocytes # 0.8 K/mcL (0.0-1.3); Monocytes % 5.4 %; Neutrophils # 8.6 K/mcL (1.6-8.9); Platelet Count 262 K/mcL (140-400); Red Blood Count 3.18 M/mcL (4.19-5.50); Red Cell Distribution Width 13.6 % (11.5-14.5); Segmented Neutrophils % 59.2 %; White Blood Count 14.5 K/mcL (4.3-11.1)
[2021-06-26 05:03] LABS: Calcium 7.9 mg/dL (8.6-10.3)
[2021-06-26 05:09] LABS: Basophils # 0.2 K/mcL (0.0-0.2)
[2021-06-26 05:39] LABS: Platelet Estimate Normal (Normal); Smudge Cells Present (Not Present)
[2021-06-26] MEDS: D5% in 0.9% NACL 1,000 ML IVC SCH ×2 (09:13→20:52)
[2021-06-26] MEDS: *HR* Heparin 5,000 UNIT/ML VIAL SQ SCH (18:57)
[2021-06-27] MEDS: Piperacillin/Tazobactam 3.375 GM in 0.9 % Sodium Chloride Mini Bag 100 ML IVPB SCH ×3 (03:05→18:12)
[2021-06-27] MEDS: *HR* Heparin 5,000 UNIT/ML VIAL SQ SCH ×2 (05:48→17:25)
[2021-06-27] MEDS: D5% in 0.9% NACL 1,000 ML IVC SCH (07:54)
[2021-06-27 14:25] LABS: Hematocrit 29.5 % (37.5-50.1); Hemoglobin 8.7 g/dL (12.9-16.9); Immature Granulocytes % 2.6 % (0-4); Lymphocytes % 22.4 %; Mean Corpuscular HGB Conc 29.5 g/dL (31.6-35.5); Mean Corpuscular Hemoglobin 29.2 pg (28.0-33.3); Mean Platelet Volume 9.2 fL (9.4-12.4); Platelet Count 216 K/mcL (140-400); Red Blood Count 2.98 M/mcL (4.19-5.50); Red Cell Distribution Width 13.9 % (11.5-14.5); Segmented Neutrophils % 63.5 %; White Blood Count 10.4 K/mcL (4.3-11.1)
[2021-06-27 14:26] LABS: Basophils # 0.1 K/mcL (0.0-0.2); Basophils % 1.2 %; Eosinophils # 0.5 K/mcL (0.0-0.6); Eosinophils % 5.1 %; Lymphocytes # 2.3 K/mcL (0.6-4.6); Monocytes # 0.5 K/mcL (0.0-1.3); Monocytes % 5.2 %; Neutrophils # 6.6 K/mcL (1.6-8.9)
[2021-06-27 16:02] LABS: Calcium 7.6 mg/dL (8.6-10.3); Potassium 4.4 mEq/L (3.5-5.1)
[2021-06-27 18:04] LABS: Calcium 7.8 mg/dL (8.6-10.3); Potassium 4.3 mEq/L (3.5-5.1)
[2021-06-28] MEDS: Piperacillin/Tazobactam 3.375 GM in 0.9 % Sodium Chloride Mini Bag 100 ML IVPB SCH ×2 (03:14→11:12)
[2021-06-28 03:37] LABS: Magnesium 1.9 mg/dL (1.6-2.6); Phosphorous 2.8 mg/dL (2.7-4.5)
[2021-06-28 04:48] LABS: Calcium 7.8 mg/dL (8.6-10.3); Potassium 3.9 mEq/L (3.5-5.1)
[2021-06-28 05:03] VITALS: BP 163/78; PULSE 74; TEMP 98; O2SAT 100
[2021-06-28] MEDS: *HR* Heparin 5,000 UNIT/ML VIAL SQ SCH (06:21)
== END 2021-06-28 13:55 | disposition hospice, home (50) | DRG 698 ==
LOC: EMEROOARM 13:52 → 4WAOSI 13:52 → SUATTDRO 18:27 → 4WAOSI 19:53
PROVIDERS: ADMIT Family Medicine; ATTEND Family Medicine